=== PATIENT | male | born 2000 | race Caucasian/White ===

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

== ENCOUNTER 2022-04-28 19:17 | Emergency (ER) | payer OTHER, MEDICAID, SELFPAY ==
[2022-04-28 19:40] VITALS: BP 106/55; PULSE 97; RESP 18; TEMP 36.4; O2SAT 100; BMI 23.7
--- NOTE | 2022-04-28 21:45 | DI.US.S_ITS ---
PROCEDURE: US SCROTUM INDICATIONS: PAIN TECHNIQUE: Real-time scanning was performed of the scrotum and testicles, with image documentation. Color and pulse Doppler interrogation was performed of both testicles. COMPARISON: None. FINDINGS: Right: Testicle measures 4.3 x 2.2 x 3.1 cm and appears homogenous in echotexture. Epididymis is normal in overall size and morphology. No hydrocele or varicoceles. Overlying scrotal skin is normal in thickness. Left: Testicle measures 4.0 x 2.4 x 3.1 cm and appears homogeneous in echotexture. Epididymis is normal in overall size and morphology. There are 2 anechoic epididymal head cysts or spermatoceles with the largest measuring up to 0.8 cm. No hydrocele. There is a left varicocele. Overlying scrotal skin is normal in thickness. Doppler: Color and pulse Doppler demonstrate normal and symmetric arterial flow in both testicles. IMPRESSION: 1. Left varicocele demonstrated. 2. Left epididymal head cysts or spermatoceles. Dictated by: Cornelio Díaz M.D. on 04/29/2022 at 0:34 Approved by: Cornelio Díaz M.D. on 04/29/2022 at 0:37
--- NOTE | 2022-04-29 01:07 | ED_ITS ---
HPI - Male Genitourinary General Chief complaint: Urogenital-Male Stated complaint: pain and swelling down there Time Seen by Provider: 04/29/22 01:03 Source: patient Mode of arrival: Ambulatory History of Present Illness HPI Narrative: Patient complains of left testicular pain and swelling and scrotal swelling for the past 3 days. Denies any injury. Denies any urethral discharge. Denies any urinary changes or problems. No dysuria frequency urgency or hematuria. No fever or chills. Related Data Previous Rx's Medication Instructions Recorded colchicine 0.6 mg tablet 1.2 mg PO DAILY pericarditis #90 11/21/21 tabs levothyroxine 100 mcg tablet 200 mcg PO DAILY hypothyroidism 11/21/21 #30 tabs paroxetine HCl 20 mg tablet (Paxil) 20 mg PO DAILY reactive anxiety 11/21/21 and depressive symptoms #30 tabs midodrine 10 mg tablet 10 mg PO TID #270 tabs 01/03/22 fludrocortisone 0.1 mg tablet 0.1 mg PO DAILY #90 tabs 01/07/22 hydrocortisone sod succ (PF) 100 100 mg (2 mL) IM ONCE #25 ea 01/07/22 mg/2 mL solution for injection prednisone 5 mg tablet 5 mg PO BID adrenal insufficiency 02/18/22 #180 tabs Allergies Allergy/AdvReac Type Severity Reaction Status Date / Time Penicillins [PENICILLINS] Allergy Severe lip Verified 11/21/21 11:27 swelling, eye swelling, rash Review of Systems Review of Systems Narrative: GENERAL: negative chills, fatigue, malaise, fever, sweats. HEENT: negative sinus pain, ear pain, sore throat RESPIRATORY: negative dyspnea, cough CARDIOVASCULAR: negative chest pain, palpitations GASTROINTESTINAL: negative nausea, vomiting, abdominal pain : negative dysuria, frequency, hematuria, positive left testicular pain and swelling MUSCULOSKELETAL: negative muscle or bony pain SKIN: negative rash, skin lesions NEUROLOGIC: negative weakness, numbness ROS Unobtainable: All systems reviewed & are unremarkable except as noted in HPI and below Patient History Medical History [place] disease Anxiety and depression (~2014) History of myxedema coma Hypothyroid Hypothyroidism Low blood pressure Pericarditis Reaction, adjustment, with anxious mood Surgical History Anesthesia History of foot surgery (~11/15/17) Family History Father Thyroid disease Mother Cancer Diabetes mellitus Grandmother Diabetes mellitus Social History details: mother in last 6 months Smoking Status: Current some day smoker alcohol intake: never substance use type: marijuana (Daily (1 dab per day)) Smoking Status: Current some day smoker Substance Use Type: does not use Exam Narrative Exam Narrative: GENERAL: in no distress, not toxic not dyspneic HEAD: Normocephalic. EYES: Pupils equal round No scleral icterus. GASTROINTESTINAL: Abdomen soft, non-tender : No lesions of the genitalia. Nontender right testicle. Strong bilateral cremasteric reflexes. There is edema mild erythema of the left scrotal sac and enlargement of the left testicle. Testicle otherwise nontender. No horizontal position of the left testicle. No epididymal tenderness. No lesions or vesicles. No inguinal lymphadenopathy. EXTREMITIES: No gross deformities. BACK: No flank tenderness. NEURO: AOx4. SKIN: Warm and dry PSYCH: Not anxious, is cooperative Initial Vital Signs Initial Vital Signs: Vital Signs Temperature 97.6 F 04/28/22 19:40 Pulse Rate 97 H 04/28/22 19:40 Respiratory Rate 18 04/28/22 19:40 Blood Pressure 106/55 L 04/28/22 19:40 Pulse Oximetry 100 04/28/22 19:40 Oxygen Delivery Method 04/28/22 19:40 Course Course Course Narrative: No new issues during course of stay Orders Ordered: ED Orders 04/28/22 21:45 US scrotum Stat Reevaluation(s) Reevaluation #1: Reviewed ultrasound results with patient. No blood work indicated a urinalysis. Referral for Urology given. No sexual activity instructions given. Patient agrees with treatment plan. Pain is controlled. He desires discharge home Time: 01:12 Vital Signs Vital signs: Vital Signs - 8 hr 04/29/22 01:25 Pulse Rate 88 Blood Pressure 110/68 Pulse Oximetry 100 Oxygen Delivery Method Room Air MDM - Male Genitourinary Differential Diagnosis Differential diagnosis: Likely urinary tract infection, priapism, urethritis, epididymitis, inguinal hernia and other (Testicular torsion/varicocele/spermatocele.) Imaging Data Scrotal ultrasound: Radiologist's Impression: [address] [id number] ReportSigned Patient: Akil Baig Jr [facility]#: [id number]: 2000Acct:[id number]/Sex: 21 / MDate of Service: 04/28/22Loc: EDAccession Number: [id number] Procedure: US scrotum Ordering Provider: Roberto Leong MD PROCEDURE: US SCROTUM INDICATIONS: PAIN TECHNIQUE: Real-time scanning was performed of the scrotum and testicles, with image documentation. Color and pulse Doppler interrogation was performed of both testicles. COMPARISON: None. FINDINGS: Right: Testicle measures 4.3 x 2.2 x 3.1 cm and appears homogenous in echotexture. Epididymis is normal in overall size and morphology. No hydrocele or varicoceles. Overlying scrotal skin is normal in thickness. Left: Testicle measures 4.0 x 2.4 x 3.1 cm and appears homogeneous in echotexture. Epididymis is normal in overall size and morphology. There are 2 anechoic epididymal head cysts or spermatoceles with the largest measuring up to 0.8 cm. No hydrocele. There is a left varicocele. Overlying scrotal skin is normal in thickness. Doppler: Color and pulse Doppler demonstrate normal and symmetric arterial flow in both testicles. IMPRESSION: 1. Left varicocele demonstrated. 2. Left epididymal head cysts or spermatoceles. Dictated by: Cornelio Díaz M.D. on 04/29/2022 at 0:34 Approved by: Cornelio Díaz M.D. on 04/29/2022 at 0:37 MDM Narrative Medical decision making narrative: Appropriate for discharge home. No blood work or urinalysis indicated. Pain is controlled. referral for Urology provided. Return precautions reviewed with patient. At this time reassuring exam and ultrasound. No epididymitis or testicular patient desires discharge home. Discharge Plan Departure Patient Disposition: Home Clinical Impression: Left varicocele, Spermatocele Instructions: DI for Varicocele, Epididymal Cyst Activity Restrictions/Additional Instructions: Please call provided urologist tomorrow morning for office re-evaluation this week of your pain and ultrasound results. No sexual activity until seen in further instructions by urologist. Return if worse if any questions or concerns. Prescriptions: No Action midodrine 10 mg tablet 10 mg PO TID Qty: 270 1RF hydrocortisone sod succ (PF) 100 mg/2 mL recon soln 100 mg IM ONCE Qty: 25 9RF Rx Instructions: For adrenal crisis, administer 100mg-200mg per dose. fludrocortisone 0.1 mg tablet 0.1 mg PO DAILY Qty: 90 1RF prednisone 5 mg tablet 5 mg PO BID Qty: 180 0RF Rx Instructions: NEEDS MEDICATION REVIEW WITH NEW PCP. 02/18/22 colchicine 0.6 mg tablet 1.2 mg PO DAILY Qty: 90 0RF Rx Instructions: Maintain on this med daily for 3 months total after diagnosis pericarditis, then stop paroxetine HCl [Paxil] 20 mg tablet 20 mg PO DAILY Qty: 30 6RF Rx Instructions: Increase and stay on 1 tab daily levothyroxine 100 mcg tablet 200 mcg PO DAILY Qty: 30 6RF Referrals: Fernando Daugherty MD [Physician] - Femi Mcnulty MD [Primary Care Provider] - Visit Report Forms: Patient Portal/API
[2022-04-29 01:25] VITALS: BP 110/68; PULSE 88; O2SAT 100
== END 2022-04-29 01:26 | disposition home or self-care (01) ==
PROVIDERS: Emergency Provider Emergency Medicine; Family Provider Pediatrics Pediatric Endocrinology; PCP Pediatrics
DX: I86.1 Scrotal varices (principal); N43.40 Spermatocele of epididymis, unspecified
CPT/HCPCS: 76870; 99281; 99282

== ENCOUNTER → 2022-09-02 11:36 | Outpatient (CLI) | payer OTHER, MEDICAID, SELFPAY ==
[2022-09-02 12:23] LABS: Add Manual Diff / Slide Review NO; Basophils Absolute Auto 100 /uL (0-100); Basophils Percent Auto 1.1 % (0-2); Eosinophils Absolute Auto 200 /uL (0-450); Eosinophils Percent Auto 2.8 % (2-4); Hematocrit 43.4 % (41-53); Hemoglobin 14.7 g/dL (13.5-17.5); Lymphocytes Absolute Auto 2400 /uL (1100-4500); Lymphocytes Percent Auto 33.2 % (25-40); Mean Corpuscular Hemoglobin 30.2 PG (26-34); Monocytes Absolute Auto 800 /uL (0-900); Monocytes Percent Auto 10.9 % (3-14); Neutrophils Absolute Auto 3700 /uL (1500-7000); Platelet Count 315 X10^3/uL (150-400); Red Blood Cell Count 4.88 X10^6/uL (4.5-5.9); Red Cell Distribution Width 13.7 % (11.6-14.8); White Blood Cell Count 7.2 X10^3/uL (4.5-11.0)
[2022-09-02 12:52] LABS: Alanine Aminotransferase 22 IU/L (<50); Albumin 4.2 g/dL (3.5-5.0); Albumin Globulin Ratio 1.4 (1.0-2.8); Alkaline Phosphatase 47 U/L (38-126); Aspartate Aminotransferase 23 IU/L (17-59); BUN Creatinine Ratio 20.7 (6-22); Bilirubin Total 0.6 mg/dL (0.2-1.3); Blood Urea Nitrogen 18 mg/dL (9-20); Calcium 9.3 mg/dL (8.4-10.2); Carbon Dioxide 28 mmol/L (22-32); Chloride 103 mmol/L (98-107); Cholesterol 184 mg/dL (140-199); Estimated Glomerular Filt Rate > 60 mL/min (>60); Globulin 3.1 g/dL (1.7-4.1); Glucose 93 mg/dL (70-100); HDL Cholesterol 42 mg/dL (40-60); HEMOLYSIS < 15 (0-50); LDL Cholesterol Calculated 125 mg/dL (<100); Potassium 4.6 mmol/L (3.4-5.1); Sodium 138 mmol/L (137-145); Total Protein 7.3 g/dL (6.3-8.2); Triglycerides 84 mg/dL (35-150)
[2022-09-02 13:16] LABS: TSH w/ Reflex to FT4 3.19 uIU/mL (0.47-4.68)
[2022-09-03 03:10] LABS: Labcorp Hemoglobin (Hb) A1c 5.6 % (4.8-5.6)
== END ==
PROVIDERS: Family Provider Pediatrics Pediatric Endocrinology; PCP Family Medicine; Referring Provider Family Medicine; Visit Provider Family Medicine
DX: E03.9 Hypothyroidism, unspecified (principal); E27.40 Unspecified adrenocortical insufficiency; F32.A Depression, unspecified; F41.9 Anxiety disorder, unspecified
CPT/HCPCS: 36415; 80053; 80061; 83036; 84443; 85025

== ENCOUNTER 2023-12-01 17:10 | Inpatient (IN) | payer OTHER, SELFPAY ==
[2023-12-01] VITALS (15 sets, daily range): BP systolic 89–155; BP diastolic 52–79; PULSE 78–105; RESP 11–48; TEMP 36.7–37.1; O2SAT 97–100; BMI 30.2
--- NOTE | 2023-12-01 17:32 | DI.RAD.S_ITS ---
PROCEDURE: XR CHEST 1V INDICATIONS: suspected sepsis TECHNIQUE: One view of the chest was acquired. COMPARISON: [facility], CR, XR CHEST 1V, 02/21/2019, 22:15. [facility], CR, XR CHEST 2V, 07/28/2018, 6:30. FINDINGS: Surgical changes and devices: None. Lungs and pleura: No dense consolidation or pleural effusion Mediastinum: Normal heart size Bones and chest wall: Unremarkable IMPRESSION: No acute radiographic abnormality. Dictated by: Kobi Aragon M.D. on 12/01/2023 at 18:02 Approved by: Kobi Aragon M.D. on 12/01/2023 at 18:02
[2023-12-01] MEDS: SODIUM CHLORIDE 0.9% 1,000 ML 1000 ML IV (17:42)
--- NOTE | 2023-12-01 17:42 | EKG_ITS ---
[address] [address] Test Date: 2023-12-01 Pat Name: Akil Baig Jr Department: [facility] Room: Gender: Male B[employer]eder [employer]: AYANA : 2000 Requested By: Order Number: [id number] Reading MD: Vance Rose MD Measurements Intervals [place] Rate: 80 P: AR: 142 QRS: 103 QRSD: 92 T: 117 QT: 346 QTc: 399 Interpretive Statements Normal sinus rhythm with sinus arrhythmia Rightward axis Electronically Signed On 12-02-2023 7:49:39 PDT by Vance Rose MD
[2023-12-01 17:48] LABS: Add Manual Diff / Slide Review NO; Basophils Absolute Auto 100 /uL (0-100); Basophils Percent Auto 0.6 % (0-2); Eosinophils Absolute Auto 100 /uL (0-450); Eosinophils Percent Auto 0.9 % (2-4); Hematocrit 45.9 % (41-53); Hemoglobin 16.5 g/dL (13.5-17.5); Lymphocytes Absolute Auto 2200 /uL (1100-4500); Lymphocytes Percent Auto 16.6 % (25-40); Mean Corpuscular HGB Conc 35.9 % (30-36); Mean Corpuscular Hemoglobin 31.7 PG (26-34); Mean Corpuscular Volume 88.2 fL (80-100); Monocytes Absolute Auto 2000 /uL (0-900); Monocytes Percent Auto 15.1 % (3-14); Neutrophils Absolute Auto 8800 /uL (1500-7000); Neutrophils Percent Auto 66.8 % (50-75); Platelet Count 360 X10^3/uL (150-400); Red Blood Cell Count 5.21 X10^6/uL (4.5-5.9); Red Cell Distribution Width 13.4 % (11.6-14.8); White Blood Cell Count 13.1 X10^3/uL (4.5-11.0)
[2023-12-01] MEDS: ONDANSETRON 4 MG/2 ML INJ IV (17:53)
[2023-12-01 17:54] LABS: INR 1.1 (0.9-1.3)
[2023-12-01 17:57] LABS: PTT Partial Thromboplastin Tim 32 SECONDS (25.1-36.5)
[2023-12-01 18:12] LABS: Lactate (Lactic Acid) 1.4 mmol/L (0.7-2.1)
[2023-12-01 18:13] LABS: Alanine Aminotransferase 41 IU/L (<50); Albumin 5.1 g/dL (3.5-5.0); Albumin Globulin Ratio 1.5 (1.0-2.8); Alkaline Phosphatase 43 U/L (38-126); Aspartate Aminotransferase 42 IU/L (17-59); BUN Creatinine Ratio 36.6 (6-22); Blood Urea Nitrogen 45 mg/dL (9-20); Calcium 9.8 mg/dL (8.4-10.2); Carbon Dioxide 16 mmol/L (22-32); Chloride 84 mmol/L (98-107); Estimated Glomerular Filt Rate > 60 mL/min (>60); Globulin 3.3 g/dL (1.7-4.1); Glucose 126 mg/dL (70-100); HEMOLYSIS 18 (0-50); Lipase 62 U/L (23-300); Total Protein 8.4 g/dL (6.3-8.2)
[2023-12-01] MEDS: HYDROCORTISONE 100 MG/2 ML VIAL IV (18:16)
[2023-12-01 18:25] LABS: Potassium 5.7 mmol/L (3.4-5.1)
--- NOTE | 2023-12-01 18:26 | ED.NAVMDI ---
HPI - Nausea/Vomiting/Diarrhea General Chief complaint: Nausea/Vomiting/Diarrhea Stated complaint: not feeling well Time Seen by Provider: 12/01/23 18:04 Source: patient Mode of arrival: Family Vehicle History of Present Illness HPI Narrative: 22-year-old gentleman with a history of [place]'s disease hypothyroidism who comes in complaining of nausea and vomiting for the last 3 weeks with a sensation that his gag reflex is exacerbated. For the last 72 hours has been dramatically worse, he has had significant decreased energy, muscle spasms and dramatic weakness. He has made a point of drinking ?lots and lots of water? to make sure that he avoided dehydration. He has not complaining of fever, cough he does note chills. He has been taking all of his [place] disease medications as well as stress dosing with his prednisone. No palpitations, shortness of breath, lower extremity edema, headaches, vision changes, seizure-like activity. Related Data Previous Rx's Medication Instructions Recorded hydrocortisone sod succ (PF) 100 100 mg (2 mL) IM ONCE #25 ea 09/02/22 mg/2 mL solution for injection fludrocortisone 0.1 mg tablet 0.1 mg PO DAILY #90 tabs 05/19/23 levothyroxine 100 mcg tablet 200 mcg (2 x 100 mcg) PO DAILY 05/19/23 hypothyroidism #180 tabs paroxetine HCl 20 mg tablet 20 mg PO DAILY #90 tabs 06/17/23 midodrine 10 mg tablet 10 mg PO TID #270 tabs 07/27/23 prednisone 5 mg tablet 5 mg PO BID #180 tabs 09/11/23 Allergies Allergy/AdvReac Type Severity Reaction Status Date / Time Penicillins [PENICILLINS] Allergy Severe lip Verified 04/06/23 10:30 swelling, eye swelling, rash Review of Systems Review of Systems Narrative: Pertinent positive and negative findings as per HPI Patient History Medical History Marijuana use On prednisone therapy Hypotension Hypothyroidism History of myxedema coma Anxiety and depression (~2014) Reaction, adjustment, with anxious mood Franky disease Hypothyroid Pericarditis Surgical History Anesthesia History of foot surgery (~11/15/17) Family History Father Thyroid disease Mother Cancer Diabetes mellitus Grandmother Diabetes mellitus Social History details: mother in last 6 months Smoking Status: Current some day smoker alcohol intake: never substance use type: marijuana (Daily (1 dab per day)) Smoking Status: Current some day smoker Substance Use Type: does not use Exam Initial Vital Signs Initial Vital Signs: Vital Signs Temperature 98.7 F 12/01/23 17:15 Pulse Rate 104 H 12/01/23 17:15 Respiratory Rate 18 12/01/23 17:15 Blood Pressure 89/52 L 12/01/23 17:15 Pulse Oximetry 98 12/01/23 17:15 Oxygen Delivery Method Room Air 12/01/23 17:15 General: Healthy appearing, in no acute distress. Able to give a complete and coherent history. Well-nourished well-developed HEENT: Moist mucous membranes, slightly injected sclera bilaterally with reactive pupils, Respiratory: Lungs are clear to auscultation, no wheezing no rales no rhonchi. Full and symmetrical air movement Cardiac: Regular rate and rhythm no murmurs no bruits Abdomen: Soft, nontender, good bowel tones, no flank pain Skin: Warm and dry, no rashes, good skin turgor Neurologic: Globally weak but otherwise Grossly neurologically intact with no obvious asymmetries or abnormalities Extremities: No trauma, well perfused Psych: Cooperative, appropriate insight and affect Course Orders Ordered: ED Orders 12/01/23 17:32 XR chest 1V Stat EKG-12 Lead Stat RT Consult Eval and Treat NOW 12/01/23 17:35 Blood Culture Stat Complete Blood Count AUTO DIFF Stat Comprehensive Metabolic Panel Stat Lactate (Lactic Acid) Stat Lipase Stat MAG [Magnesium] Stat PTT Partial Thromboplastin Sharan Stat Procalcitonin Stat Prothrombin Time INR Stat 12/01/23 18:05 Osmolality Urine Stat 12/01/23 18:38 Respiratory Panel (Film Array) Stat 12/01/23 18:55 BMP [Basic Metabolic Panel] Stat Osmolality, Serum Stat Ondansetron HCl (Ondansetron 4 Mg Odt) 4 mg SL NOW PRN PRN Reason: Nausea And Vomiting Discontinued Medications Hydrocortisone (Hydrocortisone 100 Mg/2 Ml Vial) 100 mg IV NOW ONE Stop: 12/01/23 18:05 Last Admin: 12/01/23 18:16 Dose: 100 mg Documented By: RAHUL Sodium Chloride (Normal Saline 0.9%) 1,000 mls @ 1,000 mls/hr IV BOLUS ONE Stop: 12/01/23 18:30 Last Infusion: 12/01/23 18:50 Dose: Infused Documented By: Admin: 12/01/23 17:42 Dose: 1,000 mls/hr Documented By: RAHUL Ondansetron HCl (Ondansetron 4 Mg/2 Ml Inj) 4 mg IV NOW PRN PRN Reason: Nausea And Vomiting Last Admin: 12/01/23 17:53 Dose: 4 mg Documented By: STEPHANIA Vital Signs Vital signs: Vital Signs - 8 hr 12/01/23 17:15 12/01/23 17:25 12/01/23 17:25 Temperature 98.7 F Pulse Rate 104 H 104 H Respiratory Rate 18 Blood Pressure 89/52 L 103/61 Pulse Oximetry 98 100 Oxygen Delivery Method Room Air 12/01/23 17:30 12/01/23 18:00 12/01/23 18:06 Temperature Pulse Rate 99 H 87 83 Respiratory Rate 12 24 Blood Pressure Pulse Oximetry 98 98 100 Oxygen Delivery Method 12/01/23 18:06 12/01/23 18:30 12/01/23 18:30 Temperature Pulse Rate 82 Respiratory Rate Blood Pressure 115/78 118/74 Pulse Oximetry 99 Oxygen Delivery Method 12/01/23 19:00 12/01/23 19:00 12/01/23 19:14 Temperature Pulse Rate 90 96 H Respiratory Rate 11 L Blood Pressure 115/70 Pulse Oximetry 98 97 Oxygen Delivery Method 12/01/23 19:14 Temperature Pulse Rate Respiratory Rate Blood Pressure 112/60 Pulse Oximetry Oxygen Delivery Method MDM - Nausea/Vomiting/Diarrhea Lab Data 12/01/23 17:35 12/01/23 18:55 Labs: Lab Results 12/01/23 12/01/23 12/01/23 Range/Units 17:35 18:38 18:55 WBC 13.1 H (4.5-11.0) X10^3/uL RBC 5.21 (4.5-5.9) X10^6/uL Hgb 16.5 (13.5-17.5) g/dL Hct 45.9 (41-53) % MCV 88.2 (80-100) fL MCH 31.7 (26-34) PG MCHC 35.9 (30-36) % RDW 13.4 (11.6-14.8) % Plt Count 360 (150-400) X10^3/uL Neut % (Auto) 66.8 (50-75) % Lymph % (Auto) 16.6 L (25-40) % [place] % (Auto) 15.1 H (3-14) % Eos % (Auto) 0.9 L (2-4) % Baso % (Auto) 0.6 (0-2) % Neut # (Auto) 8800 H (1806-0420) /uL Lymph # (Auto) 2200 (9753-5133) /uL [place] # (Auto) 2000 H (0-900) /uL Eos # (Auto) 100 (0-450) /uL Baso # (Auto) 100 (0-100) /uL PT 13.0 H (9.4-12.5) SECONDS INR 1.1 (0.9-1.3) APTT 32 (25.1-36.5) SECONDS Sodium 115 L* 119 L* (137-145) mmol/L Potassium 5.7 H 5.8 H (3.4-5.1) mmol/L Chloride 84 L 87 L (98-107) mmol/L Carbon Dioxide 16 L 23 (22-32) mmol/L BUN 45 H 42 H (9-20) mg/dL Creatinine 1.23 1.20 (0.66-1.25) mg/dL Estimated GFR > 60 > 60 (>60) mL/min BUN/Creatinine Ratio 36.6 H 35.0 H (6-22) Glucose 126 H 94 (70-100) mg/dL Lactate 1.4 (0.7-2.1) mmol/L Calcium 9.8 9.2 (8.4-10.2) mg/dL Magnesium 2.1 (1.6-2.3) mg/dL Total Bilirubin 2.0 H (0.2-1.3) mg/dL AST 42 (17-59) IU/L ALT 41 (<50) IU/L Alkaline Phosphatase 43 (38-126) U/L Total Protein 8.4 H (6.3-8.2) g/dL Albumin 5.1 H (3.5-5.0) g/dL Globulin 3.3 (1.7-4.1) g/dL Albumin/Globulin Ratio 1.5 (1.0-2.8) Lipase 62 (23-300) U/L Procalcitonin 0.108 (<0.5) ng/mL Chlamy pneumoniae PCR Not detected (Not Detect) Adenovirus (PCR) Not detected (Not Detect) B.parapertussis DNA PCR Not detected (Not Detecte) Coronavirus OC43 (PCR) Not detected (Not Detect) Coronavirus HKU1 (PCR) Not detected (Not Detect) Coronavirus 229E (PCR) Not detected (Not Detect) SARS-CoV-2 (PCR) Not detected (Not Detecte) Coronavirus NL63 (PCR) Not detected (Not Detect) Human Metapneumovir PCR Not detected (Not Detect) Influenza Type A (PCR) Not detected (Not Detect) Influenza Type B (PCR) Not detected (Not Detect) M. pneumoniae (PCR) Not detected (Not Detect) Parainfluenza 1 (PCR) Not detected (Not Detect) Parainfluenza 2 (PCR) Not detected (Not Detect) Parainfluenza 3 (PCR) Not detected (Not Detect) Parainfluenza 4 (PCR) Not detected (Not Detect) RSV (PCR) Not detected (Not Detect) Entero/Rhino (PCR) Not detected (Not Detect) Urine Dip Bedside Urine Glucose Negative Bedside Urine Bilirubin - Negative Bedside Urine Ketone +/- 5 Urine Specific [place] 1.015 Bedside Urine Occult Blood - Negative Bedside Urine pH 6.5 Bedside Urine Protein - Negative Bedside Urine Urobilinogen - Negative Bedside Urine Nitrite - Negative Bedside Urine Leukocytes - Negative Esterase MDM Narrative Medical decision making narrative: CC: Weakness progressive for 3 weeks with profuse vomiting for the last 72 hours Complicating co-morbidities: [place]'s disease Data collected from: patient Differential considered: Viral syndrome, gastroenteritis, addisonian crisis, electrolyte abnormality Exam documented above, pertinent findings include: Patient is euvolemic alert, appropriate able to give a complete and coherent history. Mildly injected sclera bilaterally remainder of exam is entirely benign Lab Test results independently reviewed as above. Pertinent findings: Chemistries are significantly abnormal with a sodium at 115, potassium of 5.7, chloride of 84, carbon dioxide 16, BUN of 45. Creatinine is 1.23 which is a jump from 0.87 in August. Total bilirubin is 2 Lipase is on around Procalcitonin is not elevated TSH was appropriate September 02, 2022 and not rechecked today Respiratory panel shows no viruses Independently reviewed EKG: Sinus rhythm at a rate of 80, normal QRS, no peaked T-waves Imaging studies independently reviewed: Chest x-ray is unremarkable Consultations: 630pm Dr. Cortez, nephrology. Regarding the sodium of 115, his initial recommendation was to recheck sodium. The patient was given a L of fluid on arrival as he was slightly hypotensive in reports of vomiting for the last 3 days. His recommendation is slow increase the sodium no more than 6 mEq per day. Did not recommend continuous saline or hypertonic saline infusion but if the repeat sodium has not come up he recommended 100 cc of 3% sodium as a bolus dose 645pm brief discussion with the hospitalist, Dr. Mosqueda as to appropriateness of admission to our hospital. He felt that ICU admission to [facility] would be safe for this gentleman. Remainder of workup is pending and I will talk with the evening hospitalist When more details are available Treatments: L of saline, Zofran, 100 mg of IV hydrocortisone Re-evaluations: Initial sodium of 115 has increased to 119 with the 1 L of fluid. We will go ahead and do 100 cc of hypertonic saline Discussion: 22-year-old gentleman with a history of [place]'s disease increasing weakness over the last 3 weeks with persistent vomiting for the last 3 days with significant increase in water intake to try to prevent dehydration. He still has a slight bump in his creatinine and has had enough free water to drop his sodium to 115. He will need to be admitted to the intensive care unit. We will talk with the hospitalist service. Recommendation is no more than 6 mEq increase per 24 hours. We will go ahead and do hypertonic saline in the emergency department. Does not need continuous running saline. Urine and serum osmolality currently pending. We will talk with the night hospitalist Critical Care Time Critical Care Time Critical Care Time: Yes Total Critical Care Time: 32 Attestation: Critical care time is separate from other billable procedures. There is a high probability of a significant, sudden or life-threatening deterioration that requires my full and direct attention, intervention and personal management. This critical care time includes consultation with family and other consulting doctors, review of records, and interpretation of data from labs, EKGs and imaging as well as managements of severe hyponatremia and electrolyte abnormalities Discharge Plan Departure Patient Disposition: Admitted As Inpatient Clinical Impression: Acute hyponatremia, Weakness, Franky's disease Admit Date/Time: 12/01/23 20:30
[2023-12-01 18:27] LABS: Sodium 115 mmol/L (137-145)
[2023-12-01 18:30] LABS: Procalcitonin 0.108 ng/mL (<0.5)
[2023-12-01 18:45] LABS: Magnesium 2.1 mg/dL (1.6-2.3)
[2023-12-01 19:12] LABS: Blood Urea Nitrogen 42 mg/dL (9-20); Calcium 9.2 mg/dL (8.4-10.2); Carbon Dioxide 23 mmol/L (22-32); Chloride 87 mmol/L (98-107); Estimated Glomerular Filt Rate > 60 mL/min (>60); Glucose 94 mg/dL (70-100); HEMOLYSIS 19 (0-50)
[2023-12-01 19:17] LABS: Potassium 5.8 mmol/L (3.4-5.1)
[2023-12-01 19:24] LABS: Sodium 119 mmol/L (137-145)
[2023-12-01 19:40] LABS: Adenovirus Not Detected (Not Detect); B. parapertussis Not Detected (Not Detecte); Bordetella pertussis Not Detected (Not Detect); Chlamydophila pneumoniae Not Detected (Not Detect); Coronavirus 229E Not Detected (Not Detect); Coronavirus HKU1 Not Detected (Not Detect); Coronavirus NL 63 Not Detected (Not Detect); Coronavirus OC43 Not Detected (Not Detect); Human Metapneumovirus Not Detected (Not Detect); Human Rhinovirus/Enterovirus Not Detected (Not Detect); Influenza A Not Detected (Not Detect); Influenza B Not Detected (Not Detect); Mycoplasma pneumoniae Not Detected (Not Detect); Parainfluenza Virus 1 Not Detected (Not Detect); Parainfluenza Virus 2 Not Detected (Not Detect); Parainfluenza Virus 3 Not Detected (Not Detect); Parainfluenza Virus 4 Not Detected (Not Detect); Respiratory Syncytial Virus Not Detected (Not Detect); SARS- CoV-2 Not Detected (Not Detecte)
[2023-12-01] MEDS: SODIUM CHLORIDE 3 % 100 ML 600 ML IV (20:31)
--- NOTE | 2023-12-01 22:11 | P.HP_ITS ---
History of Present Illness History of Present Illness Date Patient Seen: 12/01/23 Time Patient Seen: 21:45 Chief complaint: Generalized weakness, nausea, abdominal cramps Narrative: 22 y/o with PMH of Adrenal insufficiency, hypothyroidism, anxiety and depression, presented to ED with generalized weakness, nausea, heartburn, hypotension. He was compliant with Florinef and prednisone but on admission hyponatremic, hyperkalemic. In the ED he received 1 L of NS for Na of 115, followed by 100 cc of 3% saline and 100 mg of hydrocortisone. Admitted to ICU with acute on chronic adrenal insufficiency or adrenal crisis. [facility] Medical History Marijuana use On prednisone therapy Hypotension Hypothyroidism History of myxedema coma Anxiety and depression (~2014) Reaction, adjustment, with anxious mood Brainard disease Hypothyroid Pericarditis Surgical History Anesthesia History of foot surgery (~11/15/17) Family History Father Thyroid disease Mother Cancer Diabetes mellitus Grandmother Diabetes mellitus Social History details: mother in last 6 months Smoking Status: Current some day smoker alcohol intake: never substance use type: marijuana (Daily (1 dab per day)) Meds Home Medications and Allergies Home Medications Medication Instructions Recorded Confirmed Type hydrocortisone sod succ (PF) 100 100 mg (2 mL) IM ONCE #25 ea 09/02/22 04/06/23 Rx mg/2 mL solution for injection fludrocortisone 0.1 mg tablet 0.1 mg PO DAILY #90 tabs 05/19/23 Rx levothyroxine 100 mcg tablet 200 mcg (2 x 100 mcg) PO DAILY 05/19/23 Rx hypothyroidism #180 tabs paroxetine HCl 20 mg tablet 20 mg PO DAILY #90 tabs 06/17/23 Rx midodrine 10 mg tablet 10 mg PO TID #270 tabs 07/27/23 Rx prednisone 5 mg tablet 5 mg PO BID #180 tabs 09/11/23 Rx Allergies Allergy/AdvReac Type Severity Reaction Status Date / Time Penicillins [PENICILLINS] Allergy Severe lip Verified 04/06/23 10:30 swelling, eye swelling, rash Review of Systems Constitutional Comments: fatigued, chills Eyes Comments: w/o vision changes ENT Comments: w/o congestion sore throat Cardiovascular Comments: w/o palpitations or chest pain Respiratory Comments: w/o cough or shortness of breath Gastrointestinal Comments: nausea, vomiting w/o diarrhea abdominal cramps Musculoskeletal Comments: w/o muscle pain Psychiatric Comments: mood OK Exam Vital Signs (past 8 hours): - 12/01/23 17:15 12/01/23 17:25 12/01/23 17:25 Temperature 98.7 F Pulse Rate 104 H 104 H Respiratory Rate 18 Blood Pressure 89/52 L 103/61 Pulse Oximetry 98 100 Oxygen Delivery Method Room Air 12/01/23 17:30 12/01/23 18:00 12/01/23 18:06 Temperature Pulse Rate 99 H 87 83 Respiratory Rate 12 24 Blood Pressure Pulse Oximetry 98 98 100 Oxygen Delivery Method 12/01/23 18:06 12/01/23 18:30 12/01/23 18:30 Temperature Pulse Rate 82 Respiratory Rate Blood Pressure 115/78 118/74 Pulse Oximetry 99 Oxygen Delivery Method 12/01/23 19:00 12/01/23 19:00 12/01/23 19:14 Temperature Pulse Rate 90 96 H Respiratory Rate 11 L Blood Pressure 115/70 Pulse Oximetry 98 97 Oxygen Delivery Method 12/01/23 19:14 Temperature Pulse Rate Respiratory Rate Blood Pressure 112/60 Pulse Oximetry Oxygen Delivery Method Oxygen Delivery Method Room Air Const Other: sitting in bed in no distress HENMT Other: normocephalic pharynx of normal appearance Eyes Other: reactive, EOMI Neck Other: supple Resp Other: normal respiratory effort Cardio Other: RRR GI Other: abdomen not distended Skin Other: w/o jaundice or rashes Neuro Other: w/o deficits Extrem Other: w/o swelling Psych Other: lucid, appropriate mood Objective ECG Impression: NSR Labs 12/01/23 17:35 12/01/23 18:55 Labs: Laboratory Results - last 24 hr 12/01/23 12/01/23 12/01/23 17:35 18:38 18:55 WBC 13.1 H RBC 5.21 Hgb 16.5 Hct 45.9 MCV 88.2 MCH 31.7 MCHC 35.9 RDW 13.4 Plt Count 360 Neut % (Auto) 66.8 Lymph % (Auto) 16.6 L [place] % (Auto) 15.1 H Eos % (Auto) 0.9 L Baso % (Auto) 0.6 Neut # (Auto) 8800 H Lymph # (Auto) 2200 [place] # (Auto) 2000 H Eos # (Auto) 100 Baso # (Auto) 100 PT 13.0 H INR 1.1 APTT 32 Sodium 115 L* 119 L* Potassium 5.7 H 5.8 H Chloride 84 L 87 L Carbon Dioxide 16 L 23 BUN 45 H 42 H Creatinine 1.23 1.20 Estimated GFR > 60 > 60 BUN/Creatinine Ratio 36.6 H 35.0 H Glucose 126 H 94 Lactate 1.4 Calcium 9.8 9.2 Magnesium 2.1 Total Bilirubin 2.0 H AST 42 ALT 41 Alkaline Phosphatase 43 Total Protein 8.4 H Albumin 5.1 H Globulin 3.3 Albumin/Globulin Ratio 1.5 Lipase 62 Procalcitonin 0.108 Chlamy pneumoniae PCR Not detected Adenovirus (PCR) Not detected B.parapertussis DNA PCR Not detected Coronavirus OC43 (PCR) Not detected Coronavirus HKU1 (PCR) Not detected Coronavirus 229E (PCR) Not detected SARS-CoV-2 (PCR) Not detected Coronavirus NL63 (PCR) Not detected Human Metapneumovir PCR Not detected Influenza Type A (PCR) Not detected Influenza Type B (PCR) Not detected M. pneumoniae (PCR) Not detected Parainfluenza 1 (PCR) Not detected Parainfluenza 2 (PCR) Not detected Parainfluenza 3 (PCR) Not detected Parainfluenza 4 (PCR) Not detected RSV (PCR) Not detected Entero/Rhino (PCR) Not detected Assessment & Plan Assessment and plan (1) Acute adrenal crisis: Status: Acute (2) Brainard's disease: Status: Acute (3) Acute hyponatremia: Status: Acute (4) Hypothyroidism: Qualifiers: Hypothyroidism type: acquired Qualified Code(s): E03.9 - Hypothyroidism, unspecified Status: Acute (5) Anxiety and depression: Status: Acute Assessment & Plan narrative: Adrenal Crisis, Acute on Chronic Adrenal Insufficiency - diagnosed 10 years ago, last crisis 2.5 years ago as he stopped his medications - this time claims compliance with Florinef and prednisone - admitted to ICU with severe hyponatremia, borderline hyperkalmia, hypotension - Hydrocortisone, Florinef - needs follow up with retail coverage merchandiser lead Hyponatremia - BMP q 4 h - in the ED he had 1 L of NS for Na of 115, increasing it to 119 then he had 100 cc of hypertonic saline, as recommended by road roller operator Hypothyroidism - levothyroxine Heartburn, chronic Tx with prednisone - he feels that his throat is burning - on exam he has no evidence of pharyngitis - this in the context on nausea, vomiting - started PPI Anxiety and Depression - SSRI DVT prophylaxis - Lovenox Time-Based Coding :: [TOTAL MINUTES] spent with patient and on the chart (including review of chart, obtaining history, exam, reviewing outside data, placing orders, documenting exam and treatment plan, and counseling patient) on [DATE].
[2023-12-01 23:06] LABS: MRSA (Nasal) PCR NOT DETECTED (Not Detect)
[2023-12-01 23:16] LABS: BUN Creatinine Ratio 31.4 (6-22); Blood Urea Nitrogen 37 mg/dL (9-20); Calcium 8.7 mg/dL (8.4-10.2); Carbon Dioxide 22 mmol/L (22-32); Chloride 86 mmol/L (98-107); Estimated Glomerular Filt Rate > 60 mL/min (>60); Glucose 126 mg/dL (70-100); HEMOLYSIS < 15 (0-50)
[2023-12-01 23:18] LABS: Potassium 5.5 mmol/L (3.4-5.1)
[2023-12-01 23:19] LABS: Sodium 119 mmol/L (137-145)
[2023-12-02] VITALS (28 sets, daily range): BP systolic 103–151; BP diastolic 61–96; PULSE 75–90; RESP 16–18; TEMP 36.7–36.8; O2SAT 96–99
[2023-12-02] MEDS: HYDROCORTISONE 100 MG/2 ML VIAL IV ×3 (05:06→17:46)
[2023-12-02 05:19] LABS: Add Manual Diff / Slide Review NO; Basophils Absolute Auto 100 /uL (0-100); Basophils Percent Auto 0.7 % (0-2); Eosinophils Absolute Auto 100 /uL (0-450); Eosinophils Percent Auto 0.5 % (2-4); Hematocrit 43.4 % (41-53); Hemoglobin 15.4 g/dL (13.5-17.5); Lymphocytes Absolute Auto 2100 /uL (1100-4500); Lymphocytes Percent Auto 15.1 % (25-40); Mean Corpuscular HGB Conc 35.5 % (30-36); Mean Corpuscular Hemoglobin 31.4 PG (26-34); Mean Corpuscular Volume 88.6 fL (80-100); Monocytes Absolute Auto 1800 /uL (0-900); Monocytes Percent Auto 12.8 % (3-14); Neutrophils Absolute Auto 10100 /uL (1500-7000); Neutrophils Percent Auto 70.9 % (50-75); Platelet Count 325 X10^3/uL (150-400); Red Cell Distribution Width 13.4 % (11.6-14.8); White Blood Cell Count 14.2 X10^3/uL (4.5-11.0)
[2023-12-02 05:34] LABS: Magnesium 2.1 mg/dL (1.6-2.3)
[2023-12-02 06:07] LABS: BUN Creatinine Ratio 32.1 (6-22); Blood Urea Nitrogen 35 mg/dL (9-20); Calcium 9.3 mg/dL (8.4-10.2); Carbon Dioxide 18 mmol/L (22-32); Chloride 88 mmol/L (98-107); Estimated Glomerular Filt Rate > 60 mL/min (>60); Glucose 101 mg/dL (70-100); HEMOLYSIS 35 (0-50)
[2023-12-02 06:08] LABS: Potassium 5.4 mmol/L (3.4-5.1)
[2023-12-02 06:09] LABS: Sodium 118 mmol/L (137-145)
[2023-12-02] MEDS: PANTOPRAZOLE DR 40 MG TABLET 20 MG PO (06:09)
[2023-12-02] MEDS: ONDANSETRON 4 MG ODT SL (06:33)
--- NOTE | 2023-12-02 08:25 | P.PN_ITS ---
Subjective Subjective Interval history: From night doctor: 22 y/o with PMH of Adrenal insufficiency, hypothyroidism, anxiety and depression, presented to ED with generalized weakness, nausea, heartburn, hypotension. He was compliant with Florinef and prednisone but on admission hyponatremic, hyperkalemic. In the ED he received 1 L of NS for Na of 115, followed by 100 cc of 3% saline and 100 mg of hydrocortisone. Admitted to ICU with acute on chronic adrenal insufficiency or adrenal crisis. S: He has a history of adrenal insufficiency and has been inconsistent with his fludrocortisone and prednisone. The patient presented with severe hyponatremia and hyperkalemia consistent with adrenal insufficiency. He was started on IV hydrocortisone yesterday. He was also given hypertonic and normal saline with no change in his sodium, which remains at 1:19 a.m.. He notes a lot of polydipsia related to the heat recently. Exam Vital Signs (past 8 hours): - 12/02/23 01:07 12/02/23 01:07 12/02/23 02:00 Blood Pressure 123/68 123/68 104/61 Oxygen Delivery Method 12/02/23 02:13 12/02/23 03:00 12/02/23 03:36 Blood Pressure 104/61 103/65 103/65 Oxygen Delivery Method 12/02/23 04:00 12/02/23 04:00 12/02/23 05:07 Blood Pressure 111/80 111/80 127/80 Oxygen Delivery Method 12/02/23 05:09 12/02/23 06:24 12/02/23 06:25 Blood Pressure 127/80 124/75 124/75 Oxygen Delivery Method 12/02/23 07:00 Blood Pressure Oxygen Delivery Method Room Air Oxygen Delivery Method Room Air Oxygen Flow Rate 0 Narrative Exam Narrative: NAD, alert and oriented, fluent speech, calm. Normocephalic skull, EOMI, anicteric sclera, symmetric pupils. Oropharynx unremarkable, no droop. Neck supple, midline trachea, no adenopathy. Lungs clear, normal rate and effort. Heart regular, no murmur gallop or rub. Abdomen is soft, non distended and non tender. Extremities are free of edema. Skin is free of rash or lesions. Joints are not swollen or deformed. Judgment appears to be normal. Objective Labs 12/02/23 05:00 12/02/23 09:10 Labs: Laboratory Results - last 24 hr 12/01/23 12/01/23 12/01/23 17:35 18:38 18:55 WBC 13.1 H RBC 5.21 Hgb 16.5 Hct 45.9 MCV 88.2 MCH 31.7 MCHC 35.9 RDW 13.4 Plt Count 360 Neut % (Auto) 66.8 Lymph % (Auto) 16.6 L [place] % (Auto) 15.1 H Eos % (Auto) 0.9 L Baso % (Auto) 0.6 Neut # (Auto) 8800 H Lymph # (Auto) 2200 [place] # (Auto) 2000 H Eos # (Auto) 100 Baso # (Auto) 100 PT 13.0 H INR 1.1 APTT 32 Sodium 115 L* 119 L* Potassium 5.7 H 5.8 H Chloride 84 L 87 L Carbon Dioxide 16 L 23 BUN 45 H 42 H Creatinine 1.23 1.20 Estimated GFR > 60 > 60 BUN/Creatinine Ratio 36.6 H 35.0 H Glucose 126 H 94 Lactate 1.4 Calcium 9.8 9.2 Magnesium 2.1 Total Bilirubin 2.0 H AST 42 ALT 41 Alkaline Phosphatase 43 Total Protein 8.4 H Albumin 5.1 H Globulin 3.3 Albumin/Globulin Ratio 1.5 Lipase 62 Procalcitonin 0.108 Nasal Screen MRSA (PCR) Chlamy pneumoniae PCR Not detected Adenovirus (PCR) Not detected B.parapertussis DNA PCR Not detected Coronavirus OC43 (PCR) Not detected Coronavirus HKU1 (PCR) Not detected Coronavirus 229E (PCR) Not detected SARS-CoV-2 (PCR) Not detected Coronavirus NL63 (PCR) Not detected Human Metapneumovir PCR Not detected Influenza Type A (PCR) Not detected Influenza Type B (PCR) Not detected M. pneumoniae (PCR) Not detected Parainfluenza 1 (PCR) Not detected Parainfluenza 2 (PCR) Not detected Parainfluenza 3 (PCR) Not detected Parainfluenza 4 (PCR) Not detected RSV (PCR) Not detected Entero/Rhino (PCR) Not detected 12/01/23 12/01/23 12/02/23 21:35 22:33 05:00 WBC 14.2 H RBC 4.90 Hgb 15.4 Hct 43.4 MCV 88.6 MCH 31.4 MCHC 35.5 RDW 13.4 Plt Count 325 Neut % (Auto) 70.9 Lymph % (Auto) 15.1 L [place] % (Auto) 12.8 Eos % (Auto) 0.5 L Baso % (Auto) 0.7 Neut # (Auto) 16638 H Lymph # (Auto) 2100 [place] # (Auto) 1800 H Eos # (Auto) 100 Baso # (Auto) 100 PT INR APTT Sodium 119 L* 118 L* Potassium 5.5 H 5.4 H Chloride 86 L 88 L Carbon Dioxide 22 18 L BUN 37 H 35 H Creatinine 1.18 1.09 Estimated GFR > 60 > 60 BUN/Creatinine Ratio 31.4 H 32.1 H Glucose 126 H 101 H Lactate Calcium 8.7 9.3 Magnesium 2.1 Total Bilirubin AST ALT Alkaline Phosphatase Total Protein Albumin Globulin Albumin/Globulin Ratio Lipase Procalcitonin Nasal Screen MRSA (PCR) Not detected Chlamy pneumoniae PCR Adenovirus (PCR) B.parapertussis DNA PCR Coronavirus OC43 (PCR) Coronavirus HKU1 (PCR) Coronavirus 229E (PCR) SARS-CoV-2 (PCR) Coronavirus NL63 (PCR) Human Metapneumovir PCR Influenza Type A (PCR) Influenza Type B (PCR) M. pneumoniae (PCR) Parainfluenza 1 (PCR) Parainfluenza 2 (PCR) Parainfluenza 3 (PCR) Parainfluenza 4 (PCR) RSV (PCR) Entero/Rhino (PCR) [facility] Medical History Marijuana use On prednisone therapy Hypotension Hypothyroidism History of myxedema coma Anxiety and depression (~2014) Reaction, adjustment, with anxious mood [place] disease Hypothyroid Pericarditis Surgical History Anesthesia History of foot surgery (~11/15/17) Family History Father Thyroid disease Mother Cancer Diabetes mellitus Grandmother Diabetes mellitus Social History details: mother in last 6 months household members: significant other Smoking Status: Current some day smoker alcohol intake: never substance use type: marijuana (Daily (1 dab per day)) Assessment & Plan Assessment & Plan narrative: Adrenal Crisis, Acute on Chronic Adrenal Insufficiency, present on admission and active. - diagnosed 10 years ago, last crisis 2.5 years ago as he stopped his medications - this time claims compliance with Florinef and prednisone - admitted to ICU with severe hyponatremia, borderline hyperkalmia, hypotension - Hydrocortisone, Florinef - needs follow up with turkey picker Hyponatremia, present on admission and active. - BMP q 4 h - in the ED he had 1 L of NS for Na of 115, increasing it to 119 then he had 100 cc of hypertonic saline, as recommended by head of digital advertising & integration Hypothyroidism, present on admission and active. - levothyroxine Heartburn, chronic Tx with prednisone, present on admission and active. - he feels that his throat is burning - on exam he has no evidence of pharyngitis - this in the context on nausea, vomiting - started PPI Anxiety and Depression, present on admission and active. - SSRI Plan: -continue saline, and hydrocortisone as well as Florinef. -add 1 dose of desmopressin IV. -q.4 hours BMPs. Time-Based Coding :: 40 min spent with patient and on the chart (including review of chart, obtaining history, exam, reviewing outside data, placing orders, documenting exam and treatment plan, and counseling patient) on 12/01. Quality MIPS - Admit I confirm the patient?s Advance Care Plan is present, Code status is documented, Surrogate decision maker is in patient?s record [If Yes, STOP here]: Yes MIPS - Meds 'Current medications' to include all prescriptions, [id number] products, herbals, cannabis/cannabidiol products, and vitamin/mineral/dietary (nutritional) supplements. I have utilized all available resources to obtain, update, or review the patient?s current medications. [If Yes, STOP here]: Yes
[2023-12-02] MEDS: ENOXAPARIN 30 MG/0.3 ML SYRINGE SUBCUT (08:35)
[2023-12-02] MEDS: LEVOTHYROXINE 100 MCG TABLET 200 MCG PO (08:36)
[2023-12-02] MEDS: MIDODRINE HCL 5 MG TABLET 10 MG PO ×3 (08:36→21:05)
[2023-12-02] MEDS: FLUDROCORTISONE 0.1 MG TABLET PO (08:36)
[2023-12-02] MEDS: PARoxetine 20 MG TABLET PO (08:36)
[2023-12-02] MEDS: SODIUM CHLORIDE 0.9% 1,000 ML 125 ML IV (08:57)
[2023-12-02 09:41] LABS: BUN Creatinine Ratio 30.6 (6-22); Blood Urea Nitrogen 34 mg/dL (9-20); Calcium 9.2 mg/dL (8.4-10.2); Carbon Dioxide 21 mmol/L (22-32); Chloride 87 mmol/L (98-107); Estimated Glomerular Filt Rate > 60 mL/min (>60); Glucose 82 mg/dL (70-100); HEMOLYSIS 46 (0-50); Potassium 5.2 mmol/L (3.4-5.1)
[2023-12-02 09:54] LABS: Sodium 119 mmol/L (137-145)
[2023-12-02] MEDS: ONDANSETRON 4 MG/2 ML INJ IV ×3 (10:52→22:04)
[2023-12-02] MEDS: DESMOPRESSIN 4 MCG/ML AMPUL 1 MCG IV (10:53)
[2023-12-02 11:25] LABS: Sodium Urine Random 91 mmol/L (30-90)
--- NOTE | 2023-12-02 13:32 | CM.DANOTE ---
DCP Assessment Note Pt is a 22yo M here with low sodium/an adrenal crisis. PCP Wagner Blair and self pay PROTOZOOLOGY TEACHER reviewed EMR. Per hospitalist in morning rounds, anticipates another day or so until dc. Per chart review, recent sodium read was 119. PROTOZOOLOGY TEACHER met with pt in room. Pt on FT with Sister Jesús. Pt lives in [place] with girlfriend. Works at [employer]. Had questions about his dc medications. Reports only CM need at this point is a work medical excuse letter. PROTOZOOLOGY TEACHER updated RN that pt had medication questions. She plans to follow up with him. P: anticipate dc home tomorrow, girlfriend to transport. Need work excuse letter. no identified barriers to safe dc home at this time. CM team will follow as needed DANILO Whitaker Discharge Planning/Care Management CM Discharge Assessment Start: 12/02/23 13:30 Freq: Status: Active Protocol: Document 12/02/23 13:31 (Rec: 12/02/23 13:32 [id number]) Discharge Planning Assessment Assigned Senior Patrol Agent DANILO Pérez DPOA/Assigned Designee Name sister Espinosa Contact Information [phone] Advance Directives? No History Provided By Patient Prior Living Arrangements House Household Members significant other Type of transporation used prior to Drives own vehicle admit Independent with ADL's Yes Is patient alert and oriented? Yes Barriers to Discharge No Discharge Plan Home Transportation Arrangement girlfriend in [place] Referrals Initiated None needed Whiteboard Updated in Patient Room with Yes name and ext. # of Senior Patrol Agent Review Status In Process Please Provide Date Initial DC 12/02/23 Assessment Was Performed Next Review Type Continued Stay Review
[2023-12-02 14:08] LABS: BUN Creatinine Ratio 26.6 (6-22); Blood Urea Nitrogen 34 mg/dL (9-20); Calcium 8.8 mg/dL (8.4-10.2); Carbon Dioxide 16 mmol/L (22-32); Chloride 91 mmol/L (98-107); Estimated Glomerular Filt Rate > 60 mL/min (>60); Glucose 114 mg/dL (70-100); HEMOLYSIS 37 (0-50)
[2023-12-02 14:10] LABS: Potassium 5.4 mmol/L (3.4-5.1)
[2023-12-02 14:11] LABS: Sodium 119 mmol/L (137-145)
[2023-12-02] MEDS: PANTOPRAZOLE DR 40 MG TABLET PO (14:50)
[2023-12-02 19:48] LABS: BUN Creatinine Ratio 27.6 (6-22); Blood Urea Nitrogen 34 mg/dL (9-20); Calcium 9.1 mg/dL (8.4-10.2); Carbon Dioxide 19 mmol/L (22-32); Chloride 92 mmol/L (98-107); Estimated Glomerular Filt Rate > 60 mL/min (>60); Glucose 118 mg/dL (70-100); HEMOLYSIS 18 (0-50); Sodium 121 mmol/L (137-145)
[2023-12-02 19:49] LABS: Potassium 5.4 mmol/L (3.4-5.1)
[2023-12-02] MEDS: NICOTINE 14 PATCH 14 MG TOP (22:06)
[2023-12-03] VITALS (13 sets, daily range): BP systolic 99–133; BP diastolic 54–90; PULSE 65–88; RESP 14–18; TEMP 36.6–36.8; O2SAT 94–98
[2023-12-03] MEDS: HYDROCORTISONE 100 MG/2 ML VIAL IV ×5 (00:50→23:54)
[2023-12-03 05:03] LABS: BUN Creatinine Ratio 27.7 (6-22); Blood Urea Nitrogen 31 mg/dL (9-20); Calcium 9.1 mg/dL (8.4-10.2); Carbon Dioxide 18 mmol/L (22-32); Chloride 94 mmol/L (98-107); Estimated Glomerular Filt Rate > 60 mL/min (>60); Glucose 113 mg/dL (70-100); HEMOLYSIS 17 (0-50); Sodium 122 mmol/L (137-145)
[2023-12-03] MEDS: LEVOTHYROXINE 100 MCG TABLET 200 MCG PO (06:37)
[2023-12-03] MEDS: PANTOPRAZOLE DR 40 MG TABLET PO (06:37)
--- NOTE | 2023-12-03 08:05 | PM.PN.1 ---
Subjective Subjective Interval history: He is feeling better. He denies any confusion. His sodium is 122. He developed hyponatremia and hyperkalemia secondary to acute on chronic adrenal insufficiency medication noncompliance. He received desmopressin yesterday. He was also started on fludrocortisone and IV hydrocortisone 100 mg q.6 hours. The desmopressin relates to an algorithm suggesting its use initially to prevent overly rapid correction of sodium with adrenal insufficiency. S: He was improving, he does feel nauseated. Exam Vital Signs (past 8 hours): - 12/03/23 01:00 12/03/23 01:00 12/03/23 02:00 Temperature Pulse Rate 65 Respiratory Rate 15 Blood Pressure 122/58 L 116/55 L Pulse Oximetry 98 Oxygen Delivery Method Oxygen Flow Rate 0 12/03/23 02:00 12/03/23 03:00 12/03/23 03:00 Temperature Pulse Rate 72 66 Respiratory Rate 16 15 Blood Pressure 106/57 L Pulse Oximetry 98 98 Oxygen Delivery Method Oxygen Flow Rate 0 0 12/03/23 04:00 12/03/23 04:00 12/03/23 05:00 Temperature 98.0 F Pulse Rate 70 73 Respiratory Rate 15 15 Blood Pressure 103/54 L Pulse Oximetry 97 96 Oxygen Delivery Method Oxygen Flow Rate 0 12/03/23 05:00 12/03/23 06:00 12/03/23 06:00 Temperature Pulse Rate 71 Respiratory Rate 15 Blood Pressure 101/57 L 102/59 L Pulse Oximetry 96 Oxygen Delivery Method Oxygen Flow Rate 0 0 12/03/23 07:00 12/03/23 07:00 12/03/23 07:00 Temperature Pulse Rate 81 Respiratory Rate Blood Pressure 99/72 Pulse Oximetry 94 Oxygen Delivery Method Room Air Oxygen Flow Rate Oxygen Delivery Method Room Air Oxygen Flow Rate 0 Narrative Exam Narrative: NAD, alert and oriented. Fluent speech. Gynecomastia. Lungs are clear, normal rate and effort. Heart is regular, no murmur gallop or rub. Abdomen is soft, non distended. Extremities are free of edema. Objective Labs 12/02/23 05:00 12/03/23 03:26 Labs: Laboratory Results - last 24 hr 12/02/23 12/02/23 12/02/23 09:10 11:00 13:22 Sodium 119 L* 119 L* Potassium 5.2 H 5.4 H Chloride 87 L 91 L Carbon Dioxide 21 L 16 L BUN 34 H 34 H Creatinine 1.11 1.28 H Estimated GFR > 60 > 60 BUN/Creatinine Ratio 30.6 H 26.6 H Glucose 82 114 H Calcium 9.2 8.8 Ur Random Sodium 91 H 12/02/23 12/03/23 19:30 03:26 Sodium 121 L 122 L Potassium 5.4 H 5.0 Chloride 92 L 94 L Carbon Dioxide 19 L 18 L BUN 34 H 31 H Creatinine 1.23 1.12 Estimated GFR > 60 > 60 BUN/Creatinine Ratio 27.6 H 27.7 H Glucose 118 H 113 H Calcium 9.1 9.1 Ur Random Sodium PFSH Medical History Marijuana use On prednisone therapy Hypotension Hypothyroidism History of myxedema coma Anxiety and depression (~2014) Reaction, adjustment, with anxious mood Franky disease Hypothyroid Pericarditis Surgical History Anesthesia History of foot surgery (~11/15/17) Family History Father Thyroid disease Mother Cancer Diabetes mellitus Grandmother Diabetes mellitus Social History details: mother in last 6 months household members: significant other Smoking Status: Current some day smoker alcohol intake: never substance use type: marijuana (Daily (1 dab per day)) Assessment & Plan Assessment & Plan narrative: Adrenal Crisis (Acute on Chronic Adrenal Insufficiency from medication non-compliance, present on admission and active. - diagnosed 10 years ago, last crisis 2.5 years ago as he stopped his medications - this time claims compliance with Florinef and prednisone, but he was regurgitating a lot of his medications up for the last several days. - admitted to ICU with severe hyponatremia, borderline hyperkalmia, hypotension -stress dose Hydrocortisone, Florinef - needs follow up with oracle r12 developer Hyponatremia, present on admission and active. - BMP q 8 - in the ED he had 1 L of NS for Na of 115, increasing it to 119 then he had 100 cc of hypertonic saline, as recommended by stroke program coordinator Hypothyroidism, present on admission and active. - levothyroxine Heartburn, chronic Tx with prednisone, present on admission and active. - started PPI Anxiety and Depression, present on admission and active. - SSRI PLAN: -we will hold on any further desmopressin and allow correction rate to be monitored with steroids. -continue thyroid supplementation. -PPI and symptomatic treatment of nausea. COURTNEY/dispo: Anticipate discharge in 1-1/2-2 days pending improvement of sodium to a threshold of about 130. He sees a Dr. Asif in [place] for his endocrinology. Time-Based Coding :: 30 min spent with patient and on the chart (including review of chart, obtaining history, exam, reviewing outside data, placing orders, documenting exam and treatment plan, and counseling patient) on 12/02.
[2023-12-03] MEDS: PARoxetine 20 MG TABLET PO (08:16)
[2023-12-03] MEDS: FLUDROCORTISONE 0.1 MG TABLET PO (08:16)
[2023-12-03] MEDS: MIDODRINE HCL 5 MG TABLET 10 MG PO ×3 (08:16→21:37)
[2023-12-03] MEDS: ONDANSETRON 4 MG/2 ML INJ IV (08:17)
[2023-12-03] MEDS: NICOTINE 14 PATCH 14 MG TOP (08:20)
[2023-12-03 10:35] LABS: BUN Creatinine Ratio 24.6 (6-22); Blood Urea Nitrogen 29 mg/dL (9-20); Calcium 9.4 mg/dL (8.4-10.2); Carbon Dioxide 19 mmol/L (22-32); Chloride 96 mmol/L (98-107); Estimated Glomerular Filt Rate > 60 mL/min (>60); Glucose 117 mg/dL (70-100); HEMOLYSIS < 15 (0-50); Potassium 5.3 mmol/L (3.4-5.1); Sodium 123 mmol/L (137-145)
--- NOTE | 2023-12-03 15:13 | CM.DPC ---
DCP Cont: Per MD, pt improving but not yet medically stable to discharge today although pt was hoping to d/c. Waiting for steroids and labs to correct before pt discharge in likely 1-2 days. Pt has established bad cloth checker in [place]. DANILO Graham
[2023-12-03 22:04] LABS: BUN Creatinine Ratio 32.1 (6-22); Blood Urea Nitrogen 34 mg/dL (9-20); Calcium 8.8 mg/dL (8.4-10.2); Carbon Dioxide 19 mmol/L (22-32); Chloride 99 mmol/L (98-107); Estimated Glomerular Filt Rate > 60 mL/min (>60); Glucose 130 mg/dL (70-100); HEMOLYSIS 37 (0-50); Potassium 4.9 mmol/L (3.4-5.1); Sodium 124 mmol/L (137-145)
[2023-12-04] VITALS: BP 135/79; PULSE 87; RESP 18; TEMP 36.7; O2SAT 98
[2023-12-04] MEDS: LEVOTHYROXINE 100 MCG TABLET 200 MCG PO (06:42)
[2023-12-04] MEDS: HYDROCORTISONE 100 MG/2 ML VIAL IV (06:42)
[2023-12-04] MEDS: PANTOPRAZOLE DR 40 MG TABLET PO (06:42)
--- NOTE | 2023-12-04 07:24 | PC.NURSE ---
cokeman RN note Pt awake and restless overnight, up walking in halls and requesting snacks, eating sushi and V8 juice. Denies pain, states he wants to leave in AM due to celebrations for his birthday, pt encouraged to stay to finish course of meds and treatments. Pt caught by CAGER OPERATOR taking puffs from his nicotine vape at bedside, pt told he can not use that in hospital and to keep it in his bag. He states he will not use it again.
[2023-12-04 08:10] LABS: BUN Creatinine Ratio 28.4 (6-22); Blood Urea Nitrogen 29 mg/dL (9-20); Calcium 9.2 mg/dL (8.4-10.2); Carbon Dioxide 22 mmol/L (22-32); Chloride 97 mmol/L (98-107); Estimated Glomerular Filt Rate > 60 mL/min (>60); Glucose 108 mg/dL (70-100); HEMOLYSIS < 15 (0-50); Potassium 4.9 mmol/L (3.4-5.1); Sodium 128 mmol/L (137-145)
[2023-12-04] MEDS: MIDODRINE HCL 5 MG TABLET 10 MG PO (08:14)
[2023-12-04] MEDS: PARoxetine 20 MG TABLET PO (08:14)
[2023-12-04] MEDS: FLUDROCORTISONE 0.1 MG TABLET PO (08:14)
[2023-12-04] MEDS: NICOTINE 14 PATCH 14 MG TOP (08:28)
[2023-12-04 08:36] VITALS: BP 130/76; PULSE 62; RESP 20; TEMP 36.4; O2SAT 99
--- NOTE | 2023-12-04 08:46 | PM.DS.1 ---
History of Present Illness History of Present Illness Date Patient Seen: 12/04/23 Time Patient Seen: 08:46 Chief complaint: Generalized weakness, nausea, abdominal cramps Narrative: Per admitting provider, 22 y/o with PMH of Adrenal insufficiency, hypothyroidism, anxiety and depression, presented to ED with generalized weakness, nausea, heartburn, hypotension. He was compliant with Florinef and prednisone but on admission hyponatremic, hyperkalemic. In the ED he received 1 L of NS for Na of 115, followed by 100 cc of 3% saline and 100 mg of hydrocortisone. Admitted to ICU with acute on chronic adrenal insufficiency or adrenal crisis. Discharge Providers Provider Date of admission: 12/01/23 20:30 Discharge Date: 12/04/23 Primary care physician: Wagner Bradley DO Discharge provider: Oren De Santiago DO Summary Hospital Course Discharge Diagnosis: Adrenal Crisis (Acute on Chronic Adrenal Insufficiency from medication non-compliance, present on admission and active. Hyponatremia, present on admission and active. Hypothyroidism, present on admission and active. Heartburn, chronic Tx with prednisone, present on admission and active. Anxiety and Depression, present on admission and active. Hospital Course: This is a 23 year old male with PMH of adrenal insufficiency who was admitted with severe hyponatremia in the setting of an adrenal crisis. His initial sodium was 115, improved to 119 with IV fluids, then given 100 cc of hypertonic saline. He was treated with hydrocortisone and fludrocortisone with slow improvement in his sodium to 129. At this point the patient wished to discharge home and he felt back to his usual self. He was discharged on previous prednisone and fludricort and was encouraged to follow up with his technical sales manager. Time Spent with Patient Time spent: Less than 30 minutes Exam Vital Signs (past 8 hours): - 12/04/23 07:00 12/04/23 08:36 Temperature 97.6 F Pulse Rate 62 Respiratory Rate 20 Blood Pressure 130/76 Pulse Oximetry 99 Oxygen Delivery Method Room Air Oxygen Flow Rate 0 Oxygen Delivery Method Room Air Oxygen Flow Rate 0 Narrative Exam Narrative: NAD, alert and oriented. Fluent speech. Gynecomastia. Lungs are clear, normal rate and effort. Heart is regular, no murmur gallop or rub. Abdomen is soft, non distended. Extremities are free of edema. Objective Labs 12/02/23 05:00 12/04/23 07:45 Labs: Laboratory Results - last 24 hr 12/03/23 12/03/23 12/04/23 09:50 21:37 07:45 Sodium 123 L 124 L 128 L Potassium 5.3 H 4.9 4.9 Chloride 96 L 99 97 L Carbon Dioxide 19 L 19 L 22 BUN 29 H 34 H 29 H Creatinine 1.18 1.06 1.02 Estimated GFR > 60 > 60 > 60 BUN/Creatinine Ratio 24.6 H 32.1 H 28.4 H Glucose 117 H 130 H 108 H Calcium 9.4 8.8 9.2 PFSH Medical History Marijuana use On prednisone therapy Hypotension Hypothyroidism History of myxedema coma Anxiety and depression (~2014) Reaction, adjustment, with anxious mood [place] disease Hypothyroid Pericarditis Surgical History Anesthesia History of foot surgery (~11/15/17) Family History Father Thyroid disease Mother Cancer Diabetes mellitus Grandmother Diabetes mellitus Social History details: mother in last 6 months household members: significant other Smoking Status: Current some day smoker alcohol intake: never substance use type: marijuana (Daily (1 dab per day)) Discharge Plan Discharge Plan Patient Disposition: Home Provider Discharge Comment: You were admitted to the hospital with low sodium and adrenal insufficiency. Now improved. No changes to home medications are recommended on discharge. Recommend you follow up with an technical sales manager for ongoing management of your adrenal insufficiency. Discharge orders & Medications Prescriptions: New pantoprazole 20 mg tablet,delayed release (DR/EC) 20 mg PO DAILY 14 Days Qty: 14 0RF Continued fludrocortisone 0.1 mg tablet 0.1 mg PO DAILY Qty: 90 3RF levothyroxine 100 mcg tablet 200 mcg PO DAILY Qty: 180 3RF midodrine 10 mg tablet 10 mg PO TID Qty: 270 3RF prednisone 5 mg tablet 5 mg PO BID Qty: 180 0RF Follow up/Referrals: Wagner Bradley DO [Primary Care Provider] - Diet/Activity/Treatments Diet: Diet as Tolerated and Regular Activity: As tolerated, no restrictions Visit Report/Discharge Packet Stand Alone Forms: Patient Portal/API, Stroke Signs & Symptoms Discharge Data Primary Care Provider: Wagner Bradley
[2023-12-04] MEDS: predniSONE 5 MG TABLET PO (09:06)
--- NOTE | 2023-12-04 09:09 | CM.SWNOTE ---
DCP Continued Reviewed EMR and team rounds for pt?s medical status. No new discharge needs identified at this time. Per RN notes, patient still eager to discharge as soon as possible/stable. Plan: Pt has a discharge order in, 12/03. CM Team will continue to follow for if any discharge needs arise. YULIET Portillo
[2023-12-07 15:10] LABS: Osmolality Urine 666 mOsmol/kg (.)
== END 2023-12-04 10:55 | disposition home or self-care (01) | DRG 644 ==
LOC: ED 20:04 → AC 20:31 → ICU 21:02
PROVIDERS: Emergency Medicine; Hospitalist; Internal Medicine; Admitting Provider Internal Medicine; Emergency Provider Emergency Medicine; Family Provider Pediatrics Pediatric Endocrinology; PCP Family Medicine; Referring Provider Emergency Medicine; Visit Provider Internal Medicine
DX: E27.2 Addisonian crisis (principal); E87.1 Hypo-osmolality and hyponatremia; F17.200 Nicotine dependence, unspecified, uncomplicated; E03.9 Hypothyroidism, unspecified; F32.A Depression, unspecified; F41.9 Anxiety disorder, unspecified; K21.9 Gastro-esophageal reflux disease without esophagitis; E87.5 Hyperkalemia; I95.9 Hypotension, unspecified; Z79.52 Long term (current) use of systemic steroids; Z91.148 Patient's other noncompliance with medication regimen for other reason
CPT/HCPCS: 36415; 71045; 80048; 80053; 81003; 83605; 83690; 83735; 83930; 83935; 84145; 84300; 85025; 85610; 85730; 87040; 87633; 87797; 93005; 93010; 96374; 96375; 99284; 99291; J1650; J1720; J2405

== ENCOUNTER → 2024-01-25 10:35 | Outpatient (CLI) | payer OTHER, SELFPAY ==
[2023-12-01 20:39] VITALS: BMI 30.2
[2024-01-25 12:54] LABS: BUN Creatinine Ratio 23.2 (6-22); Blood Urea Nitrogen 23 mg/dL (9-20); Calcium 10.3 mg/dL (8.4-10.2); Carbon Dioxide 23 mmol/L (22-32); Chloride 96 mmol/L (98-107); Estimated Glomerular Filt Rate > 60 mL/min (>60); Glucose 93 mg/dL (70-100); HEMOLYSIS < 15 (0-50); Potassium 4.7 mmol/L (3.4-5.1); Sodium 132 mmol/L (137-145)
[2024-01-25 13:18] LABS: Hemoglobin A1C% w Est Avg Glu 5.3 % (4.0-6.0)
[2024-01-25 13:29] LABS: TSH w/ Reflex to FT4 0.19 uIU/mL (0.47-4.68)
[2024-01-25 13:58] LABS: Free T4, Direct Thyroxine 1.72 ng/dL (0.78-2.19)
[2024-01-25 17:45] LABS: HIV 1 & 2 Ab/Ag 4th Gen Combo NEGATIVE (NEGATIVE); Hep C Virus Ab w/Reflex Quant NEGATIVE s/c (NEGATIVE)
== END ==
LOC: LAB 10:36
PROVIDERS: Family Provider Pediatrics Pediatric Endocrinology; PCP Family Medicine; Referring Provider Family Medicine; Visit Provider Family Medicine
DX: E27.2 Addisonian crisis (principal); E27.1 Primary adrenocortical insufficiency; E87.1 Hypo-osmolality and hyponatremia; E03.9 Hypothyroidism, unspecified; Z79.52 Long term (current) use of systemic steroids
CPT/HCPCS: 36415; 80048; 83036; 84439; 84443; 86803; 87389

== ENCOUNTER 2025-03-23 11:36 | Emergency (ER) | payer MEDICAID, SELFPAY ==
[2024-09-09 15:34] VITALS: BMI 30.2
[2025-03-23 11:42] VITALS: BP 129/96; PULSE 90; RESP 16; TEMP 36.9; O2SAT 99; BMI 32.3
--- NOTE | 2025-03-23 11:59 | DI.RAD.S_ITS ---
PROCEDURE: XR CHEST 1V
--- NOTE | 2025-03-23 12:00 | ED_ITS ---
<Statement entered by Vance Santoyo, DO - 03/24/25 07:49>
--- NOTE | 2025-03-23 12:00 | ED.NAVMDI ---
HPI - Nausea/Vomiting/Diarrhea General Chief complaint: Nausea/Vomiting/Diarrhea Stated complaint: 3 days, insomnia, indigestion, vomiting Time Seen by Provider: 03/23/25 11:44 History of Present Illness HPI Narrative: Mr. Safia Payton is a very pleasant 24-year-old male with a past medical history of adrenal insufficiency/[place]'s disease, hypothyroidism who presents to the emergency department for 3 days of acid reflux nausea and vomiting. Patient reports his father on March 08, he has been dealing with this with his younger sister as his mother has also . About 3 days ago he ran out of his Protonix but he has been taking his fludrocortisone and has been stress dosing his prednisone. Last night he had multiple episodes of nonbloody vomiting between 2 and 5:00 a.m. He also has been dealing with acid reflux that is worse with lying flat making it difficult for him to sleep at night. He comes to ER for further management and concern as he has had adrenal crisis in the past requiring admission. He denies fevers, chills, chest pain, abdominal pain, shortness of breath, flu-like symptoms. He does not drink a significant amount of alcohol, he does smoke marijuana. Surgical history includes cholecystectomy. Related Data Previous Rx's ?Medication ?Instructions ?Recorded hydrocortisone sod succ (PF) 100 200 mg (4 mL) IM ONCE PRN adrenal 01/25/24 mg/2 mL solution for injection crisis #8 ea (Solu-Cortef Act-O-Vial (PF)) fludrocortisone 0.1 mg tablet 0.2 mg (2 x 0.1 mg) PO DAILY #180 12/09/24 tabs fludrocortisone 0.1 mg tablet 0.2 mg (2 x 0.1 mg) PO DAILY #180 12/09/24 tabs levothyroxine 100 mcg tablet 200 mcg (2 x 100 mcg) PO DAILY 12/12/24 hypothyroidism #180 tabs pantoprazole 20 mg tablet,delayed 20 mg PO DAILY #90 tabs 12/12/24 release prednisone 5 mg tablet 5 mg PO BID adrenal insufficiency 12/12/24 #180 tabs ondansetron 4 mg disintegrating 4 mg PO Q8H PRN nausea and 03/23/25 tablet vomiting #20 tabs pantoprazole 40 mg tablet,delayed 40 mg PO DAILY 2 weeks #14 tabs 03/23/25 release prednisone 5 mg tablet 5 mg PO BID #20 tabs 03/23/25 sucralfate 1 gram tablet (Carafate) 1 g PO BID PRN reflux #14 tabs 03/23/25 Allergies Allergy/AdvReac Type Severity Reaction Status Date / Time Penicillins (PENICILLINS) Allergy Severe lip Verified 09/23/24 09:20 swelling, eye swelling, rash Review of Systems Review of Systems ROS Unobtainable: All systems reviewed & are unremarkable except as noted in HPI and below Patient History Medical History Marijuana use On prednisone therapy Hypotension Hypothyroidism History of myxedema coma Anxiety and depression (~2014) Reaction, adjustment, with anxious mood [place] disease Hypothyroid Pericarditis Surgical History Status post cholecystectomy Anesthesia History of foot surgery (~11/15/17) Family History Father Thyroid disease Mother Cancer Diabetes mellitus Grandmother Diabetes mellitus Social History details: mother in last 6 months household members: significant other Smoking Status: Current every day smoker alcohol intake: never substance use type: marijuana Smoking Status: Current every day smoker tobacco type: cigarettes Exam Narrative Exam Narrative: GENERAL: 24 year old patient appears stated age. Well-developed patient, in no acute distress. HEAD: Atraumatic. Normocephalic. EYES: No scleral icterus. No injection or drainage. ENT: Nose without bleeding, purulent drainage. Throat without erythema, tonsillar hypertrophy or exudate. Uvula midline. NECK: Trachea midline. Cervical ROM intact. CARDIOVASCULAR: Regular rate and rhythm. RESPIRATORY: ?Nonlabored respirations. ?Speaking in clear, full sentences. ?Clear to auscultation. Breath sounds equal bilaterally. No wheezes, rales, or rhonchi. ? GASTROINTESTINAL: Abdomen soft, non-tender, nondistended. EXTREMITIES: No LE edema. NEURO: AOx3. ?Clear speech. ?Moves all 4 extremities appropriately. SKIN: No rash or erythema of visible areas Initial Vital Signs Initial Vital Signs: Vital Signs Temperature 98.5 F 03/23/25 11:42 Pulse Rate 90 03/23/25 11:42 Respiratory Rate 16 03/23/25 11:42 Blood Pressure 129/96 H 03/23/25 11:42 Pulse Oximetry 99 03/23/25 11:42 Oxygen Delivery Method Room Air 03/23/25 11:42 Course Orders Ordered: ED Orders 03/23/25 11:59 XR chest 1V Stat 03/23/25 12:00 Complete Blood Count AUTO DIFF Stat Comprehensive Metabolic Panel Stat Lipase Stat Magnesium Stat 03/23/25 14:17 Urine Culture Stat Urine Microscopic Stat Discontinued Medications Al Hydrox/Mg Hydrox/Simethicone 30 ml/ Lidocaine HCl 15 ml 0 ml PO NOW ONE Stop: 03/23/25 11:55 Last Admin: 03/23/25 12:53 Dose: 45 ml Documented By: DREA Sodium Chloride (Normal Saline 0.9%) 1,000 mls @ 1,000 mls/hr IV BOLUS ONE Stop: 03/23/25 12:53 Last Infusion: 03/23/25 13:24 Dose: Infused Documented By: Admin: 03/23/25 12:15 Dose: 1,000 mls/hr Documented By: DREA Ondansetron HCl (Ondansetron 4 Mg/2 Ml Inj) 4 mg IV NOW ONE Stop: 03/23/25 11:55 Last Admin: 03/23/25 12:15 Dose: 4 mg Documented By: DREA Pantoprazole Sodium (Pantoprazole 40 Mg Vial) 40 mg IV NOW ONE Stop: 03/23/25 11:55 Last Admin: 03/23/25 12:15 Dose: 40 mg Documented By: DREA Vital Signs Vital signs: Vital Signs - 8 hr 03/23/25 11:42 03/23/25 15:14 Temperature 98.5 F Pulse Rate 90 75 Respiratory Rate 16 18 Blood Pressure 129/96 H 135/83 Pulse Oximetry 99 97 Oxygen Delivery Method Room Air Room Air MDM - Nausea/Vomiting/Diarrhea Medical Records Attestation: I reviewed the patient's medical records. Medical records narrative: ICU admission 12/01/2023 for adrenal crisis Lab Data 03/23/25 12:00 03/23/25 12:00 Labs: Lab Results 03/23/25 03/23/25 Range/Units 12:00 14:17 WBC 14.3 H (4.5-11.0) X10^3/uL RBC 5.45 (4.5-5.9) X10^6/uL Hgb 16.8 (13.5-17.5) g/dL Hct 48.9 (41-53) % MCV 89.7 (80-100) fL MCH 30.9 (26-34) PG MCHC 34.4 (30-36) % RDW 13.6 (11.6-14.8) % Plt Count 272 (150-400) X10^3/uL Neut % (Auto) 72.6 (50-75) % Lymph % (Auto) 16.4 L (25-40) % [place] % (Auto) 8.0 (3-14) % Eos % (Auto) 2.2 (2-4) % Baso % (Auto) 0.8 (0-2) % Neut # (Auto) 56775 H (3671-8853) /uL Lymph # (Auto) 2300 (2111-5057) /uL [place] # (Auto) 1100 H (0-900) /uL Eos # (Auto) 300 (0-450) /uL Baso # (Auto) 100 (0-100) /uL Sodium 137 (137-145) mmol/L Potassium 3.6 (3.4-5.1) mmol/L Chloride 96 L (98-107) mmol/L Carbon Dioxide 27 (22-32) mmol/L BUN 19 (9-20) mg/dL Creatinine 1.18 (0.66-1.25) mg/dL Estimated GFR > 60 (>60) mL/min BUN/Creatinine Ratio 16.1 (6-22) Glucose 121 H (70-99) mg/dL Calcium 9.8 (8.4-10.2) mg/dL Magnesium 1.8 (1.6-2.3) mg/dL Total Bilirubin 1.1 (0.2-1.3) mg/dL AST 43 (17-59) IU/L ALT 59 H (<50) IU/L Alkaline Phosphatase 50 (38-126) U/L Total Protein 8.3 H (6.3-8.2) g/dL Albumin 5.1 H (3.5-5.0) g/dL Globulin 3.2 (1.7-4.1) g/dL Albumin/Globulin Ratio 1.6 (1.0-2.8) Lipase 269 (23-300) U/L Urine RBC 0-1/hpf (0-5/HPF) Urine WBC 5-10/hpf H (0-5/HPF) Ur Squamous Epith Cells 0-1 /hpf (0-5/HPF) Amorphous Sediment 2+ Urine Bacteria Occasional (0-1) (None) Ur Culture Indicated? Specimen cultured Vol Urine Centrifuged 10ml (spun) Urine Dip Bedside Urine Glucose Negative Bedside Urine Bilirubin - Negative Bedside Urine Ketone - Negative Urine Specific [place] 1.010 Bedside Urine Occult Blood - Negative Bedside Urine pH 8.0 Bedside Urine Protein + 30 Bedside Urine Urobilinogen - Negative Bedside Urine Nitrite - Negative Bedside Urine Leukocytes - Negative Esterase Imaging Data Chest x-ray: Radiologist's Impression: PROCEDURE: XR CHEST 1V INDICATIONS: GERD, N/V, [place]'s TECHNIQUE: One view of the chest was acquired. COMPARISON: [facility], , XR CHEST 1V, 12/01/2023, 17:46. FINDINGS: Surgical changes and devices: None. Lungs and pleura: Lungs are clear. No pleural effusions or pneumothorax. Mediastinum: Mediastinal contours appear normal. Heart size is normal. Bones and chest wall: No suspicious bony lesions. Overlying soft tissues appear unremarkable. IMPRESSION: No acute cardiopulmonary abnormality is seen. Dictated by: Aidan Dorsey M.D. on 03/23/2025 at 12:49 Approved by: Aidan Dorsey M.D. on 03/23/2025 at 12:49 [facility] Narrative Medical decision making narrative: 24-year-old male with a past medical history of adrenal insufficiency/[place]'s disease, hypothyroidism who presents to the emergency department for 3 days of acid reflux nausea and vomiting. Differential diagnosis includes but isn't limited to gastritis, GERD, esophagitis, peptic ulcer disease, pancreatitis, gastroenteritis, electrolyte derangement, dehydration, etc. On exam patient is in no acute distress, nontoxic-appearing, all vital signs within normal limits. His abdomen is soft and nontender. He has been experiencing 3 days of indigestion with nausea and vomiting last night and he has a history of adrenal insufficiency requiring ICU admission in the past. We will treat with IV fluids, Zofran, Protonix, GI cocktail and obtain CBC, CMP, magnesium, lipase, baseline chest x-ray and UA. Chest x-ray reveals no acute cardiopulmonary abnormality. Labs do reveal an elevated WBC count 14.3, normal hemoglobin hematocrit. Normal sodium 137, potassium 3.6, magnesium 1.8. BUN 19 creatinine 1.18. Lipase 269. Urinalysis does reveal 5-10 white blood cells however patient declines any urinary symptoms, urine was sent for culture. Discussed with the patient my concern for possible gastritis, he is feeling better after ED treatment. Recommended Protonix, Carafate, Zofran PRN and prompt follow up with the PCP with possible upper endoscopy. I did also refill his daily prednisone 5 mg as he has been stress dosing and needs a few additional doses. Discussed strict ER return precautions. Patient verbalized understanding of all information agreeable with the plan. He is ambulatory and stable for discharge home, repeat abdominal exam benign. Discharge Plan Departure Patient Disposition: Home Clinical Impression: Acid reflux Qualifiers: Esophagitis presence: esophagitis presence not specified Qualified Code(s): K21.9 - Gastro-esophageal reflux disease without esophagitis Nausea & vomiting Qualifiers: Vomiting type: unspecified Qualified Code(s): R11.2 - Nausea with vomiting, unspecified Instructions: DI for Dehydration -- Adult, DI for Gastritis Activity Restrictions/Additional Instructions: Dear Mr. Barnard, Thank you for coming to the emergency department. Today you were evaluated for acid reflux nausea and vomiting. Overall your lab work was reassuring with normal electrolytes however your white blood cell count was slightly elevated. I am concerned she may be developing gastritis and I would like you to follow up with your primary care doctor and have an upper endoscopy. You have been prescribed pantoprazole and Carafate in addition to nausea medicine. As we discussed, I do recommend a bland diet and avoid eating 1-2 hours before bed. Please return to the emergency department immediately if you develop any new or worsening symptoms, fevers, pain, or persistent vomiting. Please follow up with your primary care doctor within the next 2-3 days for ER follow-up. (If you do not have a PCP you can call [phone]. ?to schedule an appointment with an [facility] Primary Care Provider) IF YOU DEVELOP ANY NEW OR WORSENING SYMPTOMS, RETURN TO THE ER! Please read the attached instructions, they highlight more specific treatments and interventions for you at home. Thank you for letting me participate in your care, Jhoana Hughes PA-C Prescriptions: New pantoprazole 40 mg tablet,delayed release (DR/EC) 40 mg PO DAILY 14 Days Qty: 14 0RF sucralfate [Carafate] 1 gram tablet 1 g PO BID PRN (Reason: reflux) Qty: 14 0RF ondansetron 4 mg tablet,disintegrating 4 mg PO Q8H PRN (Reason: nausea and vomiting) Qty: 20 0RF prednisone 5 mg tablet 5 mg PO BID Qty: 20 0RF No Action fludrocortisone 0.1 mg tablet 0.2 mg PO DAILY Qty: 180 11RF fludrocortisone 0.1 mg tablet 0.2 mg PO DAILY Qty: 180 3RF prednisone 5 mg tablet 5 mg PO BID Qty: 180 3RF levothyroxine 100 mcg tablet 200 mcg PO DAILY Qty: 180 3RF pantoprazole 20 mg tablet,delayed release (DR/EC) 20 mg PO DAILY Qty: 90 3RF Solu-Cortef Act-O-Vial (PF) 100 mg/2 mL recon soln 200 mg IM ONCE PRN (Reason: adrenal crisis) Qty: 8 3RF Rx Instructions: as a stress dose for adrenal crisis. please provide injection supplies Referrals: Wagner Bradley DO [Primary Care Provider, Family Practice] Stand Alone Forms: Patient Portal/API
[2025-03-23 12:14] LABS: Add Manual Diff / Slide Review NO; Hematocrit 48.9 % (41-53); Hemoglobin 16.8 g/dL (13.5-17.5); Lymphocytes Absolute Auto 2300 /uL (1100-4500); Mean Corpuscular HGB Conc 34.4 % (30-36); Mean Corpuscular Hemoglobin 30.9 PG (26-34); Mean Corpuscular Volume 89.7 fL (80-100); Platelet Count 272 X10^3/uL (150-400)
[2025-03-23] MEDS: ONDANSETRON 4 MG/2 ML INJ IV (12:15)
[2025-03-23] MEDS: SODIUM CHLORIDE 0.9% 1,000 ML 1000 ML IV (12:15)
[2025-03-23] MEDS: PANTOPRAZOLE 40 MG VIAL IV (12:15)
[2025-03-23 12:34] LABS: Alanine Aminotransferase 59 IU/L (<50); Albumin 5.1 g/dL (3.5-5.0); Albumin Globulin Ratio 1.6 (1.0-2.8); Alkaline Phosphatase 50 U/L (38-126); Blood Urea Nitrogen 19 mg/dL (9-20); Calcium 9.8 mg/dL (8.4-10.2); Carbon Dioxide 27 mmol/L (22-32); Chloride 96 mmol/L (98-107); Estimated Glomerular Filt Rate > 60 mL/min (>60); Globulin 3.2 g/dL (1.7-4.1); Glucose 121 mg/dL (70-99); HEMOLYSIS 16 (0-50); Potassium 3.6 mmol/L (3.4-5.1); Sodium 137 mmol/L (137-145); Total Protein 8.3 g/dL (6.3-8.2)
[2025-03-23 12:36] LABS: Lipase 269 U/L (23-300); Magnesium 1.8 mg/dL (1.6-2.3)
[2025-03-23] MEDS: MAG HYDROX/ALUMINUM/SIMETH SUS 30 ML, LIDOCAINE VISCOUS 2% 15 ML PO (12:53)
[2025-03-23 14:35] LABS: Culture Indicated Urine Specimen Cultured
[2025-03-23 15:14] VITALS: BP 135/83; PULSE 75; RESP 18; O2SAT 97
== END 2025-03-23 15:10 | disposition home or self-care (01) ==
PROVIDERS: Emergency Provider Physician Assistant; Family Provider Pediatrics Pediatric Endocrinology; PCP Family Medicine
DX: K21.9 Gastro-esophageal reflux disease without esophagitis (principal); R11.2 Nausea with vomiting, unspecified; E27.1 Primary adrenocortical insufficiency
CPT/HCPCS: 36415; 71045; 80053; 81003; 81015; 83690; 83735; 85025; 87086; 96361; 96374; 96375; 99284; J2405; J2470; J7030

== ENCOUNTER 2025-03-25 14:03 | Emergency (ER) | payer MEDICAID, SELFPAY ==
[2024-09-09 15:34] VITALS: BMI 30.2
[2025-03-25 14:22] VITALS: BP 160/84; PULSE 84; RESP 16; TEMP 36.9; O2SAT 95; BMI 32.8
[2025-03-25 14:42] LABS: Add Manual Diff / Slide Review NO; Hematocrit 45.8 % (41-53); Hemoglobin 15.6 g/dL (13.5-17.5); Lymphocytes Absolute Auto 1300 /uL (1100-4500); Mean Corpuscular HGB Conc 34.1 % (30-36); Mean Corpuscular Hemoglobin 30.6 PG (26-34); Mean Corpuscular Volume 89.6 fL (80-100); Platelet Count 265 X10^3/uL (150-400)
[2025-03-25 14:53] LABS: Alanine Aminotransferase 51 IU/L (<50); Albumin 4.7 g/dL (3.5-5.0); Albumin Globulin Ratio 1.5 (1.0-2.8); Alkaline Phosphatase 42 U/L (38-126); Blood Urea Nitrogen 18 mg/dL (9-20); Calcium 9.2 mg/dL (8.4-10.2); Carbon Dioxide 26 mmol/L (22-32); Chloride 100 mmol/L (98-107); Estimated Glomerular Filt Rate > 60 mL/min (>60); Globulin 3.1 g/dL (1.7-4.1); Glucose 129 mg/dL (70-99); HEMOLYSIS 28 (0-50); Lipase 276 U/L (23-300); Potassium 4.7 mmol/L (3.4-5.1); Sodium 137 mmol/L (137-145); Total Protein 7.8 g/dL (6.3-8.2)
[2025-03-25 14:54] LABS: Magnesium 1.9 mg/dL (1.6-2.3)
--- NOTE | 2025-03-25 15:08 | PC.NURSE ---
Met patient and asked if they could give a urine sample and gave the cup and wipe in order to accomplish this.
--- NOTE | 2025-03-25 15:44 | ED_ITS ---
<Statement entered by Vance Santoyo, DO - 03/25/25 21:56>
--- NOTE | 2025-03-25 15:44 | ED.NAVMDI ---
HPI - Nausea/Vomiting/Diarrhea General Chief complaint: Nausea/Vomiting/Diarrhea Stated complaint: Adrenal insufficiency, told to come back Time Seen by Provider: 03/25/25 14:15 History of Present Illness HPI Narrative: 24-year-old male with history of adrenal insufficiency/[place]'s disease and hypothyroidism here because he is feeling a little off. He was just seen here 2 days ago for symptoms of nausea and vomiting which can be symptoms of an adrenal crisis for him. States in the past he has had a adrenal crisis that resulted in admission. States they usually start with him feeling a little off and feeling lucid like he is not all there mentally, and this will progress to vomiting and severe fatigue and inability to get out of bed. He is not having any of the symptoms now, aside from what he describes as feeling lucid. He does admit that the vomiting and nausea have improved significantly since he was here 2 days ago. He thought they told him if he was not improving in 2 days that he should return to the ED. he notes increased stress in his life recently as his father passed a few weeks ago. He sometimes stress doses his prednisone and takes 10 mg b.i.d. instead of his normal 5 mg b.i.d. he has been doing that a lot more recently. Denies any abdominal pain, vomiting, diarrhea, headache, weakness, URI, or any other flu-like symptoms at this time. Related Data Previous Rx's ?Medication ?Instructions ?Recorded hydrocortisone sod succ (PF) 100 200 mg (4 mL) IM ONCE PRN adrenal 01/25/24 mg/2 mL solution for injection crisis #8 ea (Solu-Cortef Act-O-Vial (PF)) fludrocortisone 0.1 mg tablet 0.2 mg (2 x 0.1 mg) PO DAILY #180 12/09/24 tabs fludrocortisone 0.1 mg tablet 0.2 mg (2 x 0.1 mg) PO DAILY #180 12/09/24 tabs levothyroxine 100 mcg tablet 200 mcg (2 x 100 mcg) PO DAILY 12/12/24 hypothyroidism #180 tabs pantoprazole 20 mg tablet,delayed 20 mg PO DAILY #90 tabs 12/12/24 release prednisone 5 mg tablet 5 mg PO BID adrenal insufficiency 12/12/24 #180 tabs ondansetron 4 mg disintegrating 4 mg PO Q8H PRN nausea and 03/23/25 tablet vomiting #20 tabs pantoprazole 40 mg tablet,delayed 40 mg PO DAILY 2 weeks #14 tabs 03/23/25 release prednisone 5 mg tablet 5 mg PO BID #20 tabs 03/23/25 sucralfate 1 gram tablet (Carafate) 1 g PO BID PRN reflux #14 tabs 03/23/25 Allergies Allergy/AdvReac Type Severity Reaction Status Date / Time Penicillins (PENICILLINS) Allergy Severe lip Verified 09/23/24 09:20 swelling, eye swelling, rash Patient History Medical History Marijuana use On prednisone therapy Hypotension Hypothyroidism History of myxedema coma Anxiety and depression (~2014) Reaction, adjustment, with anxious mood [place] disease Hypothyroid Pericarditis Surgical History Status post cholecystectomy Anesthesia History of foot surgery (~11/15/17) Family History Father Thyroid disease Mother Cancer Diabetes mellitus Grandmother Diabetes mellitus Social History details: mother in last 6 months household members: significant other alcohol intake: never substance use type: marijuana tobacco type: cigarettes Exam Narrative Exam Narrative: GENERAL: [24] year old patient appears stated age. Well-developed patient, in no acute distress. HEAD: Atraumatic. Normocephalic. EYES: Pupils equal round and reactive. Extraocular motions intact. No scleral icterus. No injection or drainage. ENT: Nose without bleeding, purulent drainage. Throat without erythema, tonsillar hypertrophy or exudate. Airway patent. NECK: Trachea midline. Non tender CARDIOVASCULAR: Regular rate and rhythm without murmurs, gallops, or rubs. RESPIRATORY: Clear to auscultation. Breath sounds equal bilaterally. No wheezes, rales, or rhonchi. GASTROINTESTINAL: Abdomen soft, non-tender, nondistended. EXTREMITIES: No edema or joint tenderness. NEURO: AOx3. SKIN: No rash or erythema of visible areas Initial Vital Signs Initial Vital Signs: Vital Signs Temperature 98.5 F 03/25/25 14:22 Pulse Rate 84 03/25/25 14:22 Respiratory Rate 16 03/25/25 14:22 Blood Pressure 160/84 H 03/25/25 14:22 Pulse Oximetry 95 03/25/25 14:22 Oxygen Delivery Method Room Air 03/25/25 14:22 Course Orders Ordered: ED Orders 03/25/25 13:25 Urine Drug Screen, Rapid Stat 03/25/25 14:33 Complete Blood Count AUTO DIFF Stat Comprehensive Metabolic Panel Stat Lipase Stat Magnesium Stat Vital Signs Vital signs: Vital Signs - 8 hr 03/25/25 14:22 03/25/25 17:22 Temperature 98.5 F Pulse Rate 84 90 Respiratory Rate 16 16 Blood Pressure 160/84 H 148/84 H Pulse Oximetry 95 98 Oxygen Delivery Method Room Air Room Air MDM - Nausea/Vomiting/Diarrhea Lab Data 03/25/25 14:33 03/25/25 14:33 Labs: Lab Results 03/25/25 03/25/25 Range/Units 13:25 14:33 WBC 16.2 H (4.5-11.0) X10^3/uL RBC 5.11 (4.5-5.9) X10^6/uL Hgb 15.6 (13.5-17.5) g/dL Hct 45.8 (41-53) % MCV 89.6 (80-100) fL MCH 30.6 (26-34) PG MCHC 34.1 (30-36) % RDW 13.5 (11.6-14.8) % Plt Count 265 (150-400) X10^3/uL Neut % (Auto) 86.8 H (50-75) % Lymph % (Auto) 7.8 L (25-40) % Sharp % (Auto) 4.3 (3-14) % Eos % (Auto) 0.8 L (2-4) % Baso % (Auto) 0.3 (0-2) % Neut # (Auto) 46994 H (7881-1054) /uL Lymph # (Auto) 1300 (0843-6086) /uL Sharp # (Auto) 700 (0-900) /uL Eos # (Auto) 100 (0-450) /uL Baso # (Auto) 100 (0-100) /uL Sodium 137 (137-145) mmol/L Potassium 4.7 (3.4-5.1) mmol/L Chloride 100 (98-107) mmol/L Carbon Dioxide 26 (22-32) mmol/L BUN 18 (9-20) mg/dL Creatinine 1.19 (0.66-1.25) mg/dL Estimated GFR > 60 (>60) mL/min BUN/Creatinine Ratio 15.1 (6-22) Glucose 129 H (70-99) mg/dL Calcium 9.2 (8.4-10.2) mg/dL Magnesium 1.9 (1.6-2.3) mg/dL Total Bilirubin 0.8 (0.2-1.3) mg/dL AST 38 (17-59) IU/L ALT 51 H (<50) IU/L Alkaline Phosphatase 42 (38-126) U/L Total Protein 7.8 (6.3-8.2) g/dL Albumin 4.7 (3.5-5.0) g/dL Globulin 3.1 (1.7-4.1) g/dL Albumin/Globulin Ratio 1.5 (1.0-2.8) Lipase 276 (23-300) U/L U Opiates 300ng/mL cut Negative (Negative) Ur Oxycodone Screen Negative (Negative) Urine Methadone Screen Negative (Negative) Ur Barbiturates Screen Negative (Negative) U Tricyclic Antidepress Negative (Negative) Ur Phencyclidine Scrn Negative (Negative) Ur Amphetamines Screen Negative (Negative) U Methamphetamines Scrn Negative (Negative) Ur MDMA Scrn (Ecstasy) Negative (Negative) U Benzodiazepines Scrn Negative (Negative) Urine Cocaine Screen Negative (Negative) U Marijuana (THC) Screen Positive H (Negative) Urine pH Normal (Normal) Urine Specific [place] Normal (Normal) Ur Creatinine Normal (Normal) Urine Dip Bedside Urine Glucose Negative Bedside Urine Bilirubin - Negative Bedside Urine Ketone - Negative Urine Specific [place] 1.020 Bedside Urine Occult Blood - Negative Bedside Urine pH 6.0 Bedside Urine Protein - Negative Bedside Urine Urobilinogen - Negative Bedside Urine Nitrite - Negative Bedside Urine Leukocytes - Negative Esterase MDM Narrative Medical decision making narrative: Patient has improved since his ED visit 2 days ago, he is no longer having nausea or vomiting. He has been hydrating well p.o. and eating well. Denies abdominal pain, vomiting, diarrhea, flu-like symptoms, or any other symptoms other than feeling lucid which he describes as needing to concentrate more to hold a conversation or just feeling a little foggy mentally. He has a slightly elevated white blood cell count of 16.2 today which is increased from 14.3 2 days ago. Neutrophils elevated at 14,000, which is up from 10,000 2 days ago. Urine normal. UDS positive for marijuana. Patient does often have slightly elevated WBCs, but this could also be due to his prednisone increased recently. He otherwise has no notable symptoms of infection on history or exam. This patient is stable for discharge at this time. He needs PCP follow up. We discussed signs and symptoms of adrenal crisis that would warrant a return to the ED. monitor for signs or symptoms of infection and return if these occur. Patient understands and agrees with this plan. Discharge Plan Departure Patient Disposition: Home Clinical Impression: Adrenal insufficiency Instructions: DI for Dehydration -- Adult Activity Restrictions/Additional Instructions: Thank you for choosing us to care for you today. We repeated your blood work today which was reassuring that you are not experiencing in adrenal crisis. You do have a slightly elevated white blood cell count which is mildly increased from ER visit 2 days ago. This can be due to your steroid use but can also be due to infection. Monitor your body for signs of infection such as fevers, chills, upper respiratory symptoms, diarrhea, any other new or worsening symptoms. Continue to hydrate using electrolytes and eat consistent small meals throughout the day. Please follow up with her PCP to discuss chronic management of your adrenal insufficiency. Please return to the ED if you experience symptoms of infection or any worsening vomiting or other symptoms of adrenal crisis. Prescriptions: No Action fludrocortisone 0.1 mg tablet 0.2 mg PO DAILY Qty: 180 11RF fludrocortisone 0.1 mg tablet 0.2 mg PO DAILY Qty: 180 3RF prednisone 5 mg tablet 5 mg PO BID Qty: 180 3RF levothyroxine 100 mcg tablet 200 mcg PO DAILY Qty: 180 3RF pantoprazole 20 mg tablet,delayed release (DR/EC) 20 mg PO DAILY Qty: 90 3RF Solu-Cortef Act-O-Vial (PF) 100 mg/2 mL recon soln 200 mg IM ONCE PRN (Reason: adrenal crisis) Qty: 8 3RF Rx Instructions: as a stress dose for adrenal crisis. please provide injection supplies pantoprazole 40 mg tablet,delayed release (DR/EC) 40 mg PO DAILY 14 Days Qty: 14 0RF sucralfate [Carafate] 1 gram tablet 1 g PO BID PRN (Reason: reflux) Qty: 14 0RF ondansetron 4 mg tablet,disintegrating 4 mg PO Q8H PRN (Reason: nausea and vomiting) Qty: 20 0RF prednisone 5 mg tablet 5 mg PO BID Qty: 20 0RF Referrals: Wagner Bradley DO [Primary Care Provider, Family Practice] Stand Alone Forms: Patient Portal/API
[2025-03-25 17:22] VITALS: BP 148/84; PULSE 90; RESP 16; O2SAT 98
[2025-03-25 17:42] LABS: UR Morphine/Opiate cutoff 300 Negative (Negative); Ur Specific Gravity Normal (Normal); Urine MDMA Negative (Negative); Urine Methamphetamines Negative (Negative); Urine Tetrahydrocannabinol Positive (Negative); Urine Tricyclic Antidepressant Negative (Negative)
== END 2025-03-25 17:45 | disposition home or self-care (01) ==
PROVIDERS: Emergency Provider Physician Assistant; Family Provider Pediatrics Pediatric Endocrinology; PCP Family Medicine
DX: E27.40 Unspecified adrenocortical insufficiency (principal); F17.210 Nicotine dependence, cigarettes, uncomplicated; F12.90 Cannabis use, unspecified, uncomplicated; R79.89 Other specified abnormal findings of blood chemistry
CPT/HCPCS: 80053; 80305; 81003; 83690; 83735; 85025; 99282; 99283

== ENCOUNTER → 2025-03-29 16:59 | Outpatient (CLI) | payer OTHER, SELFPAY ==
[2024-09-09 15:34] VITALS: BMI 30.2
[2025-03-29 19:02] LABS: Hemoglobin A1C% w Est Avg Glu 5.4 % (4.0-6.0)
[2025-03-29 19:31] LABS: Free T3, Triiodothyronine Free 4.00 pg/mL (2.77-5.27); Free T4, Direct Thyroxine 1.68 ng/dL (0.78-2.19)
[2025-03-29 19:44] LABS: Thyroid Stimulating Hormone 0.863 uIU/mL (0.47-4.68)
== END ==
PROVIDERS: PCP Family Medicine; Referring Provider Family Medicine; Visit Provider Family Medicine
DX: E03.9 Hypothyroidism, unspecified (principal); R73.9 Hyperglycemia, unspecified; R73.01 Impaired fasting glucose
CPT/HCPCS: 83036; 84439; 84443; 84481

== ENCOUNTER 2025-04-02 12:11 | Emergency (ER) | payer OTHER, SELFPAY ==
[2024-09-09 15:34] VITALS: BMI 30.2
[2025-04-02 12:13] VITALS: BP 120/74; PULSE 84; RESP 17; TEMP 36.1; O2SAT 98; BMI 34.8
--- NOTE | 2025-04-02 12:52 | PC.NURSE ---
Patient reports having issues obtaining prescription for prednisone for adrenal insufficacy.. Patient last took 10mg of presnisone this morning.
--- NOTE | 2025-04-02 13:46 | ED.RECABL ---
HPI - Recheck/Abnormal Lab/Rx General Chief Complaint: Recheck/Abnormal Lab/Rx Stated Complaint: Unable to get medication Time Seen by Provider: 04/02/25 13:46 Source: patient Mode of arrival: Ambulatory History of Present Illness HPI narrative: Patient is a 24-year-old male history of George's lady's presenting today with need for prednisone. He reports that he has been stress dosing his prednisone taking 10 mg twice a day for awhile due to his dad recently passing. He took 10 mg this morning but he does not have anymore there are no refills at the pharmacy he does not want to go into adrenal crisis he is trying to be proactive about it. He is not dizzy he is not lightheaded he has not passed out he has normal vitals. He has been taking his fludrocortisone daily. He is working with Dr. singh in regards to tapering. Related Data Previous Rx's ?Medication ?Instructions ?Recorded hydrocortisone sod succ (PF) 100 200 mg (4 mL) IM ONCE PRN adrenal 01/25/24 mg/2 mL solution for injection crisis #8 ea (Solu-Cortef Act-O-Vial (PF)) fludrocortisone 0.1 mg tablet 0.2 mg (2 x 0.1 mg) PO DAILY #180 12/09/24 tabs fludrocortisone 0.1 mg tablet 0.2 mg (2 x 0.1 mg) PO DAILY #180 12/09/24 tabs levothyroxine 100 mcg tablet 200 mcg (2 x 100 mcg) PO DAILY 12/12/24 hypothyroidism #180 tabs ondansetron 4 mg disintegrating 4 mg PO Q8H PRN nausea and 03/23/25 tablet vomiting #20 tabs pantoprazole 40 mg tablet,delayed 40 mg PO DAILY 2 weeks #14 tabs 03/23/25 release sucralfate 1 gram tablet (Carafate) 1 g PO BID PRN reflux #14 tabs 03/23/25 prednisone 5 mg tablet 5 mg PO BID #20 tabs 03/28/25 prednisone 5 mg tablet 10 mg (2 x 5 mg) PO BID #60 tabs 04/02/25 Allergies Allergy/AdvReac Type Severity Reaction Status Date / Time Penicillins (PENICILLINS) Allergy Severe lip Verified 04/02/25 12:13 swelling, eye swelling, rash Patient History Medical History (Updated 04/02/25 @ 13:49 by Meme Thomas DO) Intermediate hyperglycemia with complication Marijuana use On prednisone therapy Hypotension Hypothyroidism History of myxedema coma Anxiety and depression (~2014) Reaction, adjustment, with anxious mood [place] disease Hypothyroid Pericarditis Surgical History Status post cholecystectomy Anesthesia History of foot surgery (~11/15/17) Family History Father Thyroid disease Mother Cancer Diabetes mellitus Grandmother Diabetes mellitus Social History details: mother in last 6 months household members: significant other alcohol intake: never substance use type: marijuana tobacco type: cigarettes Exam Initial Vital Signs Initial Vital Signs: Vital Signs Temperature 97.0 F L 04/02/25 12:13 Pulse Rate 84 04/02/25 12:13 Respiratory Rate 17 04/02/25 12:13 Blood Pressure 120/74 04/02/25 12:13 Pulse Oximetry 98 04/02/25 12:13 Oxygen Delivery Method Room Air 04/02/25 12:13 GENERAL: Alert very pleasant well-appearing 24-year-old and in no acute distress. HEENT: Head atraumatic,EOMI, pupils reactive, face symmetric, moist mucous membranes CARDIOVASCULAR: Regular rate and rhythm without murmurs, rubs or gallops. RESPIRATORY: Breath sounds equal bilaterally, no wheezes rales or rhonchi. ABDOMEN: Soft, nontender. Normoactive bowel sounds all 4 quadrants. No guarding or rebound. EXTREMITIES: Normal range of motion, no clubbing or edema. Neurovascularly intact NEUROLOGICAL: Alert and oriented x4.Normal gait and speech. Cranial nerves II through XII grossly intact. SKIN: Warm, dry, no laceration, no petechiae, no rashes or lesions. Course Vital Signs Vital signs: Vital Signs - 8 hr 04/02/25 12:13 Temperature 97.0 F L Pulse Rate 84 Respiratory Rate 17 Blood Pressure 120/74 Pulse Oximetry 98 Oxygen Delivery Method Room Air MDM - Recheck/Abnormal Lab/Rx MDM Narrative Medical decision making narrative: Patient is a 24-year-old male history of adrenal insufficiency presenting today with just need for refill of prednisone. He has no signs or symptoms of adrenal insufficiency and adrenal shock today however he has gone in in the past he does not want to do it. He took prednisone this morning but does not have a refill on his prescription in his trying to avoid such an event. Discharge Plan Departure Patient Disposition: Home Clinical Impression: Adrenal insufficiency Activity Restrictions/Additional Instructions: *You have been diagnosed with adrenal insufficiency *What to do: Take good care of yourself. You are doing good job *Continue to take medications as directed Prednisone 10 mg twice a day, please talk to primary care in regards to tapering *Follow up with your primary care provider in 2-3 days or call [phone] *Return to ER if you should have any new, worsening or concerning symptoms Prescriptions: New prednisone 5 mg tablet 10 mg PO BID Qty: 60 0RF No Action fludrocortisone 0.1 mg tablet 0.2 mg PO DAILY Qty: 180 11RF fludrocortisone 0.1 mg tablet 0.2 mg PO DAILY Qty: 180 3RF levothyroxine 100 mcg tablet 200 mcg PO DAILY Qty: 180 3RF prednisone 5 mg tablet 5 mg PO BID Qty: 20 0RF Solu-Cortef Act-O-Vial (PF) 100 mg/2 mL recon soln 200 mg IM ONCE PRN (Reason: adrenal crisis) Qty: 8 3RF Rx Instructions: as a stress dose for adrenal crisis. please provide injection supplies pantoprazole 40 mg tablet,delayed release (DR/EC) 40 mg PO DAILY 14 Days Qty: 14 0RF sucralfate [Carafate] 1 gram tablet 1 g PO BID PRN (Reason: reflux) Qty: 14 0RF ondansetron 4 mg tablet,disintegrating 4 mg PO Q8H PRN (Reason: nausea and vomiting) Qty: 20 0RF Referrals: aWgner Bradley DO [Primary Care Provider, Family Practice] Stand Alone Forms: Patient Portal/API
--- NOTE | 2025-04-02 14:10 | PC.NURSE ---
pt was here for a med refill no complaints
== END 2025-04-02 14:16 | disposition home or self-care (01) ==
PROVIDERS: Emergency Provider Emergency Medicine; PCP Family Medicine
DX: Z76.0 Encounter for issue of repeat prescription (principal); E27.1 Primary adrenocortical insufficiency
CPT/HCPCS: 99281